=== PATIENT | female | born 1940 | race Caucasian/White ===

== ENCOUNTER 2016-05-17 10:20 | Emergency (ER) | payer MEDICARE, OTHER ==
[2015-06-04 11:54] VITALS: BMI 20.6
[~2016-05-17 10:20] MED LIST: ALBUTEROL2.5 MG/3 M INH; ASPIRIN325 MG PO; BACTRIM DS TABL1 TAB PO; BENICAR HCT 40-1 TA1 PO; BENICAR40 MG PO; BIAXIN 500 MG500 MG PO; COZAAR100 MG PO; DIOVAN HCT 80/11 TAB; FERROUS SULFAT325 MG PO; FLAGYL500 MG PO; HYDROCHLOROTHIA25 MG PO; IPRAT-ALBUT 0.5-3 ML UPD; K-DUR20 MEQ PO; KEFLEX500 MG PO; MACROBID100 MG PO; MICRO-K10 MEQ PO; NORCO 10/325 TA1 TA1 PO; ORAPRED ODT10 MG/TAB PO; PEPCID20 MG PO; PROAIR HFA8.5 GM INH; PROCTOFOAM15 GM RC; PROVENTIL/2.5 MG/3 M INH; PULMICORT0.5 MG/21 UPD; STERAPRED DS 1210 MG PO; SYNTHROID25 MCG PO; TYLENOL 8 HOUR650 MG PO; VENTOLIN HFA18 GM INH; XANAX0.5 MG PO; [UNRECOGNIZED DRUG - OTHER] PO
[2016-05-17 10:56] LABS: BASOPHILS 0.2 % (0.0-2.0); HEMATOCRIT 38.7 % (36.0-48.0); HEMOGLOBIN 12.3 g/dL (12-16); IMMATURE GRANULOCYTES 0.2 % (0-5); LYMPHOCYTES 27.9 % (15-50); MCH 28.3 pg (26.0-34.0); MCHC 31.8 g/dL (31.0-37.0); MCV 89.2 fL (80.0-100.0); MEAN PLATELET VOLUME 9.4 fL (7.4-10.4); NEUTROPHILS 63.7 % (40-80); PLATELET COUNT 162 10x3/uL (130-400); RBC 4.34 10x6/uL (4.00-5.40); RDW 13.1 % (11.5-14.5); WBC 5.6 10x3/uL (4.8-10.8)
[2016-05-17 11:13] LABS: ALBUMIN 3.9 g/dL (3.4-5.0); ANION GAP 12.7 mmol/L (8-16); BILIRUBIN - TOTAL 0.5 mg/dL (0.2-1.3); CALCIUM 10.2 mg/dL (8.5-10.1); CARBON DIOXIDE 27.1 mmol/L (21.0-32.0); POTASSIUM - SERUM 3.8 mmol/L (3.5-5.1); PROTEIN - SERUM 7.3 g/dL (6.4-8.2)
[2016-05-17 11:25] LABS: APPEARANCE CLEAR (CLEAR); BILIRUBIN NEGATIVE (NEGATIVE); COLOR STRAW (YELLOW); GLUCOSE NEGATIVE (NEGATIVE); KETONE NEGATIVE (NEGATIVE); LEUKOCYTE ESTERASE 1+ (NEGATIVE); NITRITE NEGATIVE (NEGATIVE); PROTEIN NEGATIVE (NEGATIVE); SPECIFIC GRAVITY 1.005 (1.005-1.020); UROBILINOGEN NORMAL (NORMAL)
[2016-05-17 11:26] LABS: BACTERIA FEW /hpf (NONE SEEN); EPITHELIAL CELLS 0-5 /hpf (0-5); RED CELLS - URINE RARE /hpf (0-5)
[2016-05-17 11:29] LABS: MAGNESIUM - SERUM 1.9 mg/dL (1.8-2.4)
== END 2016-05-17 14:38 | disposition home or self-care (01) ==
LOC: D.ER 10:20
PROVIDERS: Emergency Medicine
DX: R10.9 Unspecified abdominal pain (principal); R19.7 Diarrhea, unspecified; R06.00 Dyspnea, unspecified; I10 Essential (primary) hypertension; F41.9 Anxiety disorder, unspecified; J45.909 Unspecified asthma, uncomplicated; E03.9 Hypothyroidism, unspecified

== ENCOUNTER 2016-08-01 06:52 | Day surgery (SDC) | payer MEDICARE, OTHER ==
[~2016-08-01] VITALS: Ht 157.5 cm; Wt 54.5 kg
[2016-08-01] MEDS ORDERED: NORVASC5 MG PO (08:17)
[2016-08-01 08:23] VITALS: BP 139/85; Ht 157.5 cm; Wt 54.5 kg
[2016-08-01 08:45] LABS: BASOPHILS 0.2 % (0-2); EOSINOPHILS 1.6 % (0-7); HEMATOCRIT 39.7 % (36.0-48.0); HEMOGLOBIN 12.6 g/dL (12-16); IMMATURE GRANULOCYTES 0.4 % (0-5); LYMPHOCYTES 23.4 % (15-50); MCH 28.8 pg (26.0-34.0); MCHC 31.7 g/dL (31.0-37.0); MCV 90.8 fL (80.0-100.0); MEAN PLATELET VOLUME 9.2 fL (7.4-10.4); MONOCYTES 6.3 % (2-11); NEUTROPHILS 68.1 % (40-80); PLATELET COUNT 161 10x3/uL (130-400); RBC 4.37 10x6/uL (4.00-5.40); RDW 13.3 % (11.5-14.5); WBC 4.9 10x3/uL (4.8-10.8)
[2016-08-01 08:58] LABS: ANION GAP 11.9 mmol/L (8-16); CALCIUM 9.9 mg/dL (8.5-10.1); CARBON DIOXIDE 29.8 mmol/L (21.0-32.0); CREATININE - SERUM 0.8 mg/dL (0.6-1.3); POTASSIUM - SERUM 3.7 mmol/L (3.5-5.1)
[2016-08-01] MEDS ORDERED: PROTONIX40 MG PO (10:24)
--- NOTE | 2016-08-01 13:02 | OP ---
PATIENT NAME: MELISSA NAIDU MEDICAL RECORD: [id number] :38 LOCATION:TRACE ADMISSION DATE: SURGEON: MAUREEN ROBBINS DO DATE OF OPERATION: 08/01/2016 PROCEDURE: EGD with biopsies. INDICATIONS FOR PROCEDURE: Heartburn and generalized abdominal pain. SCOPE: Olympus video gastroscope. MEDICATIONS: Propofol 100 mg IV per anesthesia. ESTIMATED BLOOD LOSS: Less than 3 cc. FINDINGS: Informed consent was given. The patient was made comfortable with the above medication. After reaching an adequate level of sedation by slow IV push, the patient was placed on her left side. The endoscope was then advanced under direct visualization through the mouth to the second portion of the duodenum. 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 Multiple biopsies were taken of this site to confirm the diagnosis. Within the Knott's segment, at approximately 34 cm, there was a single nodule, which measured approximately 2-3 mm in diameter and stood out from the surrounding areas. This was biopsied separately and placed in its own container for pathology. The endoscope was advanced beyond the GE junction and retroflexed to view the cardia and fundus. There was a small sliding hiatal hernia present involving the cardia. The fundus appeared normal. There were multiple small, superficial, linear gastric ulcers present throughout the body of the stomach. There were no bleeding stigmata associated with these ulcers. In the antrum and prepyloric region, there was some nodularity, granularity and erythema consistent with gastritis. Multiple biopsies were taken from the antrum, incisura and body of the stomach to send for pathology and to rule out H. pylori. The endoscope was advanced through the pylorus into the duodenum where the bulb and second portion of the duodenum appeared normal. The endoscope was then withdrawn from the patient. The patient tolerated the procedure well and there were no complications. IMPRESSION: 1. 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 2. A single nodule within the Knott's mucosa, which was biopsied separately. This was located at 34 cm and measured approximately 2-3 mm in diameter. 3. Small sliding hiatal hernia. 4. Linear superficial gastric ulcers throughout the body of the stomach. 5. Gastritis of the antrum and prepyloric region. PLAN AND RECOMMENDATIONS: 1. Discharge home when recovery parameters are met. 2. Protonix 40 mg daily in the morning. 3. Consider adding Carafate suspension if the Protonix is not controlling symptoms. 4. Follow up biopsy specimen results. 5. We will refer for a modified barium swallow with speech pathology based on OPERATIVE REPORT [id number] EVANGELISTAMELISSA BILLY past findings of aspiration with thin liquids. The patient states that she has not received any speech therapy evaluation since that finding. 6. Consider lower endoscopy based on symptoms of abdominal pain. 7. Consider CT scan if all endoscopy is normal. TRANSINT:[id number] Voice Confirmation ID: [id number] DOCUMENT ID: [id number] MAUREEN ROBBINS DO at 1302 CC: [id number] DICTATION DATE: 08/01/16 0919 SUPERVISOR PRODUCTION: 08/01/16 1126 REG [facility] [address] [id number]
--- NOTE | 2016-08-01 15:25 | NUR ---
1005 SERVED FULL LIQUID DIET. Stephanie GAUTHIER R.N. 1040 UP TO BATHROOM WITH ASSISTANCE & USING WALKER. VOIDED URINE. BACK TO BED. IV DC'ED WITH CATH INTCT & 825ML LTC. PRESSURE TO SITE. NO BLEEDING NOTED. PT DRESSING WITH ASSISTANCE OF HER DAUGHTER, BENJAMÍN. Stephanie GAUTHIER R.N. 1100 DRESSED, AWAKE & ALERT. SITTING UP ON SIDE OF BED. GIVEN DISCHARGE INFORMATION INCLUDING: MED REC, SHEET LISTING NSAIDS TO AVOID FOR 2 WEEKS, REFLUX ESOPHAGITIS/HIATEL HERNIA DIET, & DISCHARE INSTRUCTIONS SHEET POST ENDOSCOPIC PROCEDURES. PT VOICED UNDERSTANDING. RX ALREADY GIVEN TO FAMILY MEMBER FOR PROTONIX. PT VOICED UNDERSTANDING. TO PRIVATE CAR PER WHEELCHAIR BY VOLUNTEER. HOME WITH DAUGHTER, BENJAMÍN. Stephanie GAUTHIER R.N.
== END 2016-08-01 11:00 | disposition home or self-care (01) ==
LOC: D.OPS 06:52
PROVIDERS: Anesthesiology
DX: K29.70 Gastritis, unspecified, without bleeding (principal); R12 Heartburn; R10.84 Generalized abdominal pain; J44.9 Chronic obstructive pulmonary disease, unspecified; E03.9 Hypothyroidism, unspecified; I11.0 Hypertensive heart disease with heart failure; I50.9 Heart failure, unspecified; K25.9 Gastric ulcer, unspecified as acute or chronic, without hemorrhage or perforation; K44.9 Diaphragmatic hernia without obstruction or gangrene; Z01.812 Encounter for preprocedural laboratory examination

== ENCOUNTER → 2016-08-23 12:58 | Outpatient (CLI) | payer MEDICARE, OTHER ==
[2016-08-01 08:23] VITALS: BMI 22.0
[~2016-08-23 12:58] MED LIST changes: +NORVASC5 MG PO; +PROTONIX40 MG PO
== END | disposition home or self-care (01) ==
LOC: D.RAD 08-10 13:00
DX: R10.9 Unspecified abdominal pain (principal); R12 Heartburn

== ENCOUNTER 2016-08-26 08:19 | Emergency (ER) | payer MEDICARE, OTHER ==
[2016-08-01 08:23] VITALS: BMI 22.0
[2016-08-26 08:49] LABS: BASOPHILS 0.2 % (0-2); EOSINOPHILS 1.7 % (0-7); HEMATOCRIT 40.8 % (36.0-48.0); HEMOGLOBIN 13.1 g/dL (12-16); IMMATURE GRANULOCYTES 0.3 % (0-5); LYMPHOCYTES 19.6 % (15-50); MCH 29.2 pg (26.0-34.0); MCHC 32.1 g/dL (31.0-37.0); MCV 90.9 fL (80.0-100.0); MEAN PLATELET VOLUME 9.3 fL (7.4-10.4); MONOCYTES 5.9 % (2-11); NEUTROPHILS 72.3 % (40-80); PLATELET COUNT 165 10x3/uL (130-400); RBC 4.49 10x6/uL (4.00-5.40); RDW 13.2 % (11.5-14.5); WBC 5.8 10x3/uL (4.8-10.8)
[2016-08-26 08:51] LABS: APPEARANCE HAZY (CLEAR); BILIRUBIN NEGATIVE (NEGATIVE); COLOR YELLOW (YELLOW); GLUCOSE NEGATIVE (NEGATIVE); KETONE NEGATIVE (NEGATIVE); NITRITE NEGATIVE (NEGATIVE); PROTEIN NEGATIVE (NEGATIVE); UROBILINOGEN NORMAL (NORMAL)
[2016-08-26 08:52] LABS: LEUKOCYTE ESTERASE TRACE (NEGATIVE); WHITE CELLS - URINE 0-5 /hpf (0-5)
[2016-08-26 08:54] LABS: BACTERIA MODERATE /hpf (NONE SEEN); EPITHELIAL CELLS 0-5 /hpf (0-5); RED CELLS - URINE 0-5 /hpf (0-5)
[2016-08-26 09:03] LABS: ALBUMIN 3.9 g/dL (3.4-5.0); BILIRUBIN - TOTAL 0.51 mg/dL (0.2-1.3); CALCIUM 10.2 mg/dL (8.5-10.1); CARBON DIOXIDE 28.7 mmol/L (21.0-32.0); CREATININE - SERUM 1.1 mg/dL (0.6-1.3); POTASSIUM - SERUM 3.7 mmol/L (3.5-5.1); PROTEIN - SERUM 7.3 g/dL (6.4-8.2)
[2016-08-26 11:57] LABS: THYROID STIMULATING HORMONE 1.36 uIU/mL (0.36-3.74)
== END 2016-08-26 13:00 | disposition home or self-care (01) ==
LOC: D.ER 08:19
PROVIDERS: Emergency Medicine
DX: R53.1 Weakness (principal); J45.909 Unspecified asthma, uncomplicated; F41.9 Anxiety disorder, unspecified; I10 Essential (primary) hypertension; E03.9 Hypothyroidism, unspecified

== ENCOUNTER → 2017-01-04 12:29 | Outpatient (CLI) | payer MEDICARE, OTHER ==
[2016-08-01 08:23] VITALS: BMI 22.0
== END | disposition home or self-care (01) ==
LOC: D.RAD 12-30 13:00
DX: R13.10 Dysphagia, unspecified (principal)

== ENCOUNTER 2017-01-04 13:12 | Emergency (ER) | payer MEDICARE, OTHER ==
[2016-08-01 08:23] VITALS: BMI 22.0
[2017-01-04 15:12] LABS: BASOPHILS 0.3 % (0-2); EOSINOPHILS 2.8 % (0-7); HEMATOCRIT 39.7 % (36.0-48.0); HEMOGLOBIN 12.9 g/dL (12-16); IMMATURE GRANULOCYTES 0.5 % (0-5); LYMPHOCYTES 21.5 % (15-50); MCH 29.1 pg (26.0-34.0); MCHC 32.5 g/dL (31.0-37.0); MCV 89.4 fL (80.0-100.0); MONOCYTES 4.5 % (2-11); NEUTROPHILS 70.4 % (40-80); RBC 4.44 10x6/uL (4.00-5.40); RDW 13.4 % (11.5-14.5)
[2017-01-04 15:15] LABS: PLATELET COUNT 205 10x3/uL (130-400)
[2017-01-04 15:38] LABS: ALBUMIN 3.8 g/dL (3.4-5.0); ANION GAP 9.8 mmol/L (8-16); BILIRUBIN - TOTAL 0.4 mg/dL (0.2-1.3); CALCIUM 10.2 mg/dL (8.5-10.1); CARBON DIOXIDE 29.1 mmol/L (21.0-32.0); POTASSIUM - SERUM 3.9 mmol/L (3.5-5.1); PROTEIN - SERUM 6.8 g/dL (6.4-8.2)
[2017-01-04 16:28] LABS: APPEARANCE CLEAR (CLEAR); BILIRUBIN NEGATIVE (NEGATIVE); COLOR YELLOW (YELLOW); GLUCOSE NEGATIVE (NEGATIVE); KETONE NEGATIVE (NEGATIVE); NITRITE NEGATIVE (NEGATIVE); PROTEIN NEGATIVE (NEGATIVE); UROBILINOGEN NORMAL (NORMAL)
[2017-01-04 16:30] LABS: BACTERIA FEW /hpf (NONE SEEN); LEUKOCYTE ESTERASE TRACE (NEGATIVE); RED CELLS - URINE OCC /hpf (0-5); WHITE CELLS - URINE OCC /hpf (0-5)
== END 2017-01-04 18:13 | disposition home or self-care (01) ==
LOC: D.ER 13:12
PROVIDERS: Emergency Medicine
DX: R10.32 Left lower quadrant pain (principal); K59.00 Constipation, unspecified; Z87.09 Personal history of other diseases of the respiratory system; Z86.79 Personal history of other diseases of the circulatory system; I10 Essential (primary) hypertension

== ENCOUNTER 2017-05-14 12:17 | Emergency (ER) | payer MEDICARE, OTHER ==
[2016-08-01 08:23] VITALS: BMI 22.0
[2017-05-14 13:06] LABS: BASOPHILS 0.3 % (0-2); EOSINOPHILS 4.1 % (0-7); HEMATOCRIT 37.5 % (36.0-48.0); IMMATURE GRANULOCYTES 0.3 % (0-5); LYMPHOCYTES 25.5 % (15-50); MCH 28.4 pg (26.0-34.0); MCV 88.7 fL (80.0-100.0); MEAN PLATELET VOLUME 8.7 fL (7.4-10.4); MONOCYTES 9.8 % (2-11); PLATELET COUNT 184 10x3/uL (130-400); RBC 4.23 10x6/uL (4.00-5.40); RDW 14.3 % (11.5-14.5); WBC 6.7 10x3/uL (4.8-10.8)
[2017-05-14 13:21] LABS: ALBUMIN 3.5 g/dL (3.4-5.0); ANION GAP 10.4 mmol/L (8-16); BILIRUBIN - TOTAL 0.3 mg/dL (0.2-1.3); CARBON DIOXIDE 28.8 mmol/L (21.0-32.0); POTASSIUM - SERUM 4.2 mmol/L (3.5-5.1); PROTEIN - SERUM 7.1 g/dL (6.4-8.2)
== END 2017-05-14 14:32 | disposition home or self-care (01) ==
LOC: D.ER 12:17
PROVIDERS: Emergency Medicine
DX: J20.9 Acute bronchitis, unspecified (principal); J44.9 Chronic obstructive pulmonary disease, unspecified

== ENCOUNTER → 2017-05-31 09:31 | Outpatient (CLI) | payer MEDICARE, OTHER ==
[2016-08-01 08:23] VITALS: BMI 22.0
== END | disposition home or self-care (01) ==
LOC: D.ECHO 09:31
DX: I71.2 Thoracic aortic aneurysm, without rupture (principal)

== ENCOUNTER → 2017-07-03 07:27 | Outpatient (CLI) | payer MEDICARE, OTHER ==
[2016-08-01 08:23] VITALS: BMI 22.0
[~2017-07-03 07:27] MED LIST changes: +ASPIRIN81 MG PO; +BYSTOLIC10 MG PO; +PLAVIX75 MG PO; +PRAVACHOL20 MG PO
== END | disposition home or self-care (01) ==
LOC: D.NM 07:27
DX: E04.9 Nontoxic goiter, unspecified (principal)

== ENCOUNTER 2017-09-06 23:27 | Inpatient (IN) | payer MEDICARE, OTHER ==
[~2017-09-06] VITALS: Ht 157.5 cm; Wt 48.4 kg
--- NOTE | ~2017-09-06 | DS ---
PATIENT:MELISSA NAIDU :36 MEDICAL RECORD: [id number] DISCHARGE SUMMARY ADMISSION DATE: 09/07/17 DISCHARGE DATE: 09/08/17 DATE OF DISCHARGE: 09/08/2017 DIAGNOSES: 1. Non-Q-wave myocardial infarction. 2. Coronary artery disease. 3. Percutaneous transluminal coronary angioplasty stent left anterior descending this admission. 4. Chronic obstructive pulmonary disease. 5. Hypertension. 6. Hyperlipidemia. HOSPITAL COURSE: Ms. Naidu presents with chest pain and a non-Q-wave myocardial infarction, found to have single vessel disease of the LAD, underwent successful PTCA stent of the LAD. Discharged home, discontinuing her losartan and amlodipine. She has better heart rate and blood pressure control with Bystolic 10 mg alone, addition of Pravachol 20 mg to her medical regimen as well as aspirin and Plavix. Will follow up with [facility] in 1 month. TRANSINT:[id number] Voice Confirmation ID: [id number] DOCUMENT ID: [id number] YAQUELIN BRISENO MD at 1403 CC: [id number] DICTATION DATE: 09/08/17 1003 INTERNATIONAL GUEST COORDINATOR: 09/08/17 1349 DIS IN 09/08/17 [facility] [address] [place] [address]
--- NOTE | ~2017-09-06 | HEMODYNAMI ---
PATIENT:MELISSA NAIDU MEDICAL RECORD: [id number] : 36 [facility] [id number] ADMISSION DATE: 09/07/17 Generatedon:09/07/201713:14 Patient name: MELISSA NAIDU Patient #: [id number] SSN: D OB: 1940 Date of study: 09/07/2017 Page: Of Hemodynamic Procedure Report Patient Data Patient Demographics Procedure consent was obtained First Name: MELISSA Gender: Female Last Name: EVANGELISTA : 1940 [facility] Initial: BILLY Age: 77 year(s) Patient #: [id number] Race: Unknown Additional ID: [id number] Contact details Address: [address] [address] State: [place] City: [place] Zip code: [address] Admission Admission Data Admission Date: 09/07/2017 Admission Time: 0:58 Room #: D2117 Height (in.): 61.81 BSA: 1.44 (m2) Height (cm.): 157 BMI: 19.07 (kg/m2) Weight (lbs.): 103.62 Weight (kg.): 47 Lab Results Lab Result Date: 09/07/2017 Lab Result Time: 0:00 Biochemistry Name Units Result Min Max BUN mg/dl 13 --(--*-)-- 7 18 Creatinine mg/dl 0.8 --(-*--)-- 0.6 1.3 CBC Name Units Result Min Max Hemoglobin g/dl 11.8 *-(----)-- 13.5 17.5 Procedure Procedure Types Cath Procedure Diagnostic Procedure C [facility] w/Coronaries Sedation Charges Moderate Sedation up to 15 minutes PCI Procedure Coronary Stent Coronary Stent Initial Procedure Description Procedure Date Procedure Date: 09/07/2017 Procedure Start Time: 12:58 Procedure End Time: 13:11 Procedure Staff Name Function Ovi Colon MD Performing Physician Vicky Hernandez RT Monitor Nettie Aguilar RN Nurse Gilda Coleman RT Scrub Anthony Gannon RN Nurse Procedure Data Cath Procedure Fluoroscopy Diagnostic fluoroscopy Total fluoroscopy Time: 3.4 time: 3.4 min min Diagnostic fluoroscopy Total fluoroscopy dose: 596 dose: 596 mGy mGy Contrast Material Contrast Material Type Amount (ml) Isovue 300 86 Entry Location Entry Primary Successful Side Size Upsize Upsize Entry Closure Succes sful Closure Location (Fr) 1 (Fr) 2 (Fr) Remarks Device Remarks Femoral Right 5 Fr 6 Fr Exoseal artery Short Estimated blood loss: 5 ml Diagnostic catheters Device Type Used For End Catheter Placement MULTIPACK Pigtail 5 Fr LV Angiography catheter MULTIPACK JL 4.0 5Fr Left Coronary catheter Angiography MULTIPACK 3DRC 5Fr Right Coronary catheter Angiography Procedure Complications No complications Procedure Medications Medication Administration Route Dosage Oxygen NC 2 l/min Lidocaine 2% added to field 20 Heparin Flush Bag added to field 2 bags (1000units/500ml NS) 0.9% NaCl I.V. 100 ml/hr Fentanyl I.V. 50 mcg Versed I.V. 1 mg Fentanyl I.V. 50 mcg Versed I.V. 1 mg Heparin Bolus I.V. 4000 units Hemodynamics Rest BSA: 1.44 (m2) HGB: 11.8 (g/dl) O2 Consumption: Estimated: 148.31 (ml/min) O2 Co nsumption indexed: Estimated:102.99 (ml/min/m) Heart Rate: 104 (bpm) Pressure Samples Time Site Value (mmHg) Purpose Heart Use Rate(bpm) 12:59 LV 73/10,12 Snapshot 102 Snapshots Pre Cath Intra NCS Post Cath Vital Signs Time Heart Resp SPO2 etCO2 NIBP (mmHg) Rhythm Pain Sedation Rate (ipm) (%) (mmHg) Status Level (bpm) 12:38:25 102 19 99 26.1 130/85(101) NSR 0 (11) 10(A) , No pain 12:42:32 107 19 99 16.4 128/86(102) NSR 0 (11) 10(A) , No pain 12:46:42 99 17 98 30.5 122/74(93) NSR 0 (11) 9(A) , No pain 12:50:50 99 16 98 35 105/71(84) NSR 0 (11) 9(A) , No pain 12:54:52 97 17 97 32.7 114/71(87) NSR 0 (11) 9(A) , No pain 12:58:53 103 16 97 35 126/79(99) NSR 0 (11) 9(A) , No pain 13:03:01 100 17 96 33.5 108/72(88) NSR 0 (11) 9(A) , No pain 13:07:03 94 17 97 35.7 107/68(87) NSR 0 (11) 9(A) , No pain 13:11:03 96 18 97 32.7 107/72(86) NSR 0 (11) 10(A) , No pain Medications Time Medication Route Dose Verified Delivered Reason Notes Effectiveness by by 12:14:42 Oxygen NC 2 Voi Buffie used for l/min Isaiah Aguilar supply aide 12:14:49 Lidocaine 2% added 20ml Ovi Buffie used for to vial Isaiah Aguilar supply aide field 12:14:55 Heparin Flush added 2 Ovi Buffie used for Bag to bags Isaiah Aguilar RN procedure (1000units/500ml field NS) 12:15:02 0.9% NaCl I.V. 100 Ovi Buffie Per physician ml/hr Isaiah Aguilar RN 12:43:43 Fentanyl I.V. 50 Ovi Cruz for sedation mcg Isaiah Gannon RN 12:43:53 Versed I.V. 1 mg Ovi Cruz for sedation Isaiah Gannon RN 12:58:44 Fentanyl I.V. 50 Ovi Sawyery for sedation mcg Isaiah Gannon RN 12:58:46 Versed I.V. 1 mg Ovi Cruz for sedation Isaiah Gannon RN 13:04:26 Heparin Bolus I.V. 4000 Oviveto Sawyery for units Isaiah Gannon RN anticoagulation Procedure Log Time Note 11:39:11 Patient Height : 61.81 inches 11:39:15 Patient Weight : 103.62 lbs 11:39:42 Lab Result : Hemoglobin 11.8 g/dl 11:39:42 Lab Result : Creatinine 0.8 mg/dl 11:39:42 Lab Result : BUN 13 mg/dl 11:40:10 Diagnostic Cath status Elective 11:40:12 Vicky Hernandez RT(R) sent for patient. Start room use. 11:53:28 Time tracking: Regular hours (M-F 7:00 - 5:00) 11:53:32 Plan of Care:Hemodynamics will remain stable., Cardiac rhythm will remain stable., Comfort level will be maintained., Respiratory function will remain adequate., Patient/ family verbilizes understanding of procedure., Procedure tolerated without complication., Recovers from procedure without complications.. 11:53:37 Patient received from Med II to CCL 2 Alert and oriented. Tansferred to table in Supine position. 11:53:37 Warm blankets applied, and jamie hugger turned on for patient comfort. 11:53:38 Correct patient and procedure confirmed by team. 11:53:39 Signed procedure consent form obtained from patient. 11:53:41 ECG and BP/O2 sat monitors applied to patient. 11:57:49 Full Disclosure recording started 11:57:58 H&P Date Dictated: 09/07/2017 New H&P dictated by physician.. 11:58:00 Pre-procedure instructions explained to patient. 11:58:00 Pre-op teaching completed and patient verbalized understanding. 11:58:03 Family unavailable. 11:58:04 Patient NPO since Midnight. 11:58:06 Is the patient allergic to Iodine/contrast media? No. 11:58:07 Was the patient premedicated? No 11:58:08 Is patient on blood thinner?Yes 11:58:09 ACC The patient was administered the following blood thiners within the last 24 hours: ACCPlavix 11:58:09 Patient diabetic? No. 11:58:12 Previous problem with sedation/anesthesia? No ? 11:58:14 Snore? Yes 11:58:15 Sleep apnea? No 11:58:16 Deviated septum? No 11:58:16 Opens mouth fully? Yes 11:58:17 Sticks out tongue? Yes 11:58:23 Airway obstruction? Yes copd asthma 11:58:25 Dentures? No ? 11:58:29 Pre procedure: right dorsailis pedis pulse 2+ Normal; easily identifiable; not easily obliterated 11:58:31 Pre procedure: left dorsailis pedis pulse 2+ Normal; easily identifiable; not easily obliterated 11:58:32 Patient pain scale 0/10 ?. 11:59:40 IV started by Nettie Aguilar RN inleft forearm with a 20 gauge IV catheter with 0.9% NaCl at KVO. 11:59:43 Lab results completed and on chart. 11:59:49 Right groin area was prepped with chlora-prep and draped in sterile fashion 11:59:49 Alarms reviewed by R. N. 11:59:50 Sharps counted by scrub and verified by R.N. 12:14:42 Oxygen 2 l/min NC was administered by Nettie Aguilar RN; used for procedure; 12:14:49 Lidocaine 2% 20ml vial added to field was administered by Nettie Aguilar RN; used for procedure; 12:14:55 Heparin Flush Bag (1000units/500ml NS) 2 bags added to field was administered by Nettie Aguilar RN; used for procedure; 12:15:02 0.9% NaCl 100 ml/hr I.V. was administered by Nettie Aguilar RN; Per physician; 12:34:04 Physician arrived 12:34:05 --------ALL STOP TIME OUT------ 12:34:05 Final Timeout: patient, procedure, and site verified with staff and physician. All members of the team are in agreement. 12:34:15 Right groin site verified by team. 12:34:18 Physical assessment completed. ASA score P 2 - A patient with mild systemic disease as per Ovi Colon MD. 12:34:22 Sedation plan: IV Moderate Sedation Medication:Versed, Fentanyl 12:34:27 Use device set Femoral Dx 12:34:28 ACIST Syringe (33496) opened to sterile field. 12:34:29 Bag Decanter () opened to sterile field. 12:34:29 Medline Cath Pack ([id number]) opened to sterile field. 12:34:30 DIAGNOSTIC WIRE .035 260cm J wire (336181) opened to sterile field. 12:34:31 ACIST Hand Control (08090) opened to sterile field. 12:34:31 ACIST Manifold (75072) opened to sterile field. 12:34:32 DIAGNOSTIC Multipack 5Fr catheter set (MP8926) opened to sterile field. 12:34:33 Tegaderm 4 x 4 (1626W) opened to sterile field. 12:34:34 SHEATH Prelude 5Fr 0.035 ([id number]-5D-49-035) opened to sterile field. 12:37:34 Zero performed for pressure channel P1 12:38:12 Vital chart was started 12:38:13 Baseline sample Acquired. 12:38:35 Rhythm: sinus tachycardia 12:43:43 Fentanyl 50 mcg I.V. was administered by Anthony Gannon RN; for sedation; 12:43:53 Versed 1 mg I.V. was administered by Anthony Gannon RN; for sedation; 12:57:52 Procedure started. 12:58:44 Fentanyl 50 mcg I.V. was administered by Anthony Gannon RN; for sedation; 12:58:46 Versed 1 mg I.V. was administered by Anthony Gannon RN; for sedation; 12:58:51 Local anesthetic to right femoral artery with Lidocaine 2% by Ovi Colon MD.INITIAL ACCESS ONLY 12:59:00 A 5 Fr sheath was inserted into the Right Femoral artery 12:59:14 A MULTIPACK Pigtail 5 Fr catheter was advanced over the wire and used for LV Angiography. 12:59:47 LV hemodynamics recorded. 12:59:49 LV gram done using ESPINO 12:59:54 Injector settings: Ml/sec: 5, Volume: 15, 12:59:59 EF : 50 % 13:00:07 Catheter removed. 13:00:11 A MULTIPACK JL 4.0 5Fr catheter was advanced over the wire and used for Left Coronary Angiography. 13:00:53 LCA angiography performed. 13:00:56 Injector settings: Ml/sec: 3, Volume: 6, 13:02:08 Catheter removed. 13:02:14 A MULTIPACK 3DRC 5Fr catheter was advanced over the wire and used for Right Coronary Angiography. 13:02:44 CHOICE PT Extra Support 182cm wire ([id number]) opened to sterile field. 13:02:45 INFLATOR Merit BasixCompak (LM5608) opened to sterile field. 13:02:46 SHEATH 6Fr Prelude ([id number]) opened to sterile field. 13:02:52 RCA angiography performed. 13:02:54 Injector settings: Ml/sec: 3, Volume: 6, 13:03:01 GUIDE 6FR XBLAD 4.0 catheter ([id number]) opened to sterile field. 13:03:07 Catheter removed. 13:03:08 Proceeding to intervention. 13:03:15 Sheath upsized to a 6 Fr Short. 13:03:22 6 Fr xblad 4 guide catheter was inserted over the wire 13:03:32 choice pt wire advanced. 13:04:26 Heparin Bolus 4000 units I.V. was administered by Anthony Gannon RN; for anticoagulation; 13:04:37 Wire advanced across lesion. 13:08:07 Place stent Inflation Number: 1 A BEN RX 3.0 x 18 stent ([id number]) was prepped and advanced across the Prox LAD. The stent was deployed at 13 DAVID for 0:10 (min:sec). 13:08:33 Stent catheter was removed intact over wire. 13:08:34 Wire removed. 13:08:35 Guide catheter removed. 13:08:46 Sheath removed intact; hemostasis achieved with Exoseal to the Right Femoral artery. 13:08:48 Procedure ended.(Physican Out) 13:08:57 Fluoroscopy time 03.40 minutes. 13:09:01 Flurop Dose total: 596 13:09:01 Fluoroscopy dose: 596 mGy 13:09:05 Contrast amount:Isovue 300 86ml. 13:09:34 Sharps counted by scrub and verified by R.N. 13:09:36 Insertion/operative site no bleeding no hematoma. 13:09:38 Post-op/insertion site Right Femoral artery dressed using a 4 x 4 and Tegaderm. 13:09:41 Post right femoral artery:stable 13:09:42 Post Procedure Pulses reassessed and unchanged 13:09:54 Post procedure rhythm: unchanged. 13:09:57 Estimated blood loss: 5 ml 13:09:58 Post procedure instruction explained to patient.Patient verbalizes understanding. 13:09:59 Patient needs reinforcement of post procedure teaching. 13:10:36 Procedure type changed to Cath procedure, Diagnostic procedure, LHC, LHC w/Coronaries, Sedation Charges, Moderate Sedation up to 15 minutes, PCI procedure, Coronary Stent, Coronary Stent Initial 13:10:37 Procedure and supply charges have been captured, reviewed, submitted and are correct. 13:10:42 Procedure Complication : No complications 13:10:44 Vital chart was stopped 13:10:45 See physician's report for complete and final results. 13:11:03 Report given to [facility]. 13:11:06 Patient transfered to [facility] with Stretcher. 13:11:08 Procedure ended. 13:11:08 Full Disclosure recording stopped 13:11:16 ACC-PCI Only Patient was given prescriptions, or instructed by Ovi Colon MD to start/continue the following medications upon discharge: Plavix 13:11:18 End room use (Document Last) 13:12:41 EXOSEAL 6Fr (EX600) opened to sterile field. Intervention Summary Intervention Notes Time ActionType Lesion and Equipment Used Action# Pressure Duration Attributes 13:08:[address] stent Prox LAD BEN RX 3.0 x 1 13 00:10 18 stent ([id number]) Device Usage Item Name Manufacture Quantity Catalog Number Hospital Part Current Minimal Lot# / Charge Number Stock Stock Serial# Code ACIST Syringe Acist 1 18848 486141 100200 347182 20 (63829) [employer] Bag Decanter Microtek 1 2001S 582245 24054 482843 5 (2001S) Medical Inc. Medline Cath Cardinal 1 [id number] 616091 49432 470978 5 Pack Health ([id number]) DIAGNOSTIC WIRE St Silverio 1 796877 387224 884813 338681 30 .035 260cm J wire (839977) ACIST Hand Acist 1 37214 918436 742160 356901 5 Control (79212) Medical [employer] Inc ACIST Manifold Acist 1 44453 713630 812042 334885 5 (09079) [employer] Systems Inc DIAGNOSTIC Cardinal 1 [id number] 530418 36280 237902 30 Multipack 5Fr Health catheter set (AR0013) Tegaderm 4 x 4 3M 1 1626W 799179 744364 382333 5 (1626W) SHEATH Prelude Merit 1 QAO-1M-86-035 783006 171456 036591 5 5Fr 0.035 Medical (FSV-1H-17-035) MULTIPACK Cardinal 1 432686 5 Pigtail 5 Fr Health catheter MULTIPACK JL Cardinal 1 149475 5 4.0 5Fr Health catheter MULTIPACK 3DRC Cardinal 1 093853 5 5Fr catheter Health CHOICE PT Extra [place] 1 [id number] 078871 477634 790289 5 Support 182cm Scientific wire ([id number]) INFLATOR Merit Merit 1 [id number] 890260 480378 772589 15 [employer]ix[employer] Medical (OW9569) SHEATH 6Fr Merit 1 [id number] 952419 703071 046095 5 Prelude Medical ([id number]) GUIDE 6FR XBLAD Cardinal 1 [id number] 047016 614610 598857 3 4.0 catheter Health ([id number]) BEN RX 3.0 x Medtronic 1 [id number] 149290 3803324 457541 5 [id number] 18 stent ([id number]) EXOSEAL 6Fr Cardinal 1 EX600 558097 449260 116043 10 (EX600) Health Signature Audit [place] Stage Time Signature Unsigned Intra-Procedure 09/07/2017 Vicky Hernandez 1:14:39 PM RT(R) Signatures Monitor : Vicky Hernandez RT Signature : Date : Time : [id number] [place] [address]
--- NOTE | ~2017-09-06 | OP ---
PATIENT NAME: MELISSA NAIDU MEDICAL RECORD: [id number] :38 LOCATION:D.M2 D.2117 ADMISSION DATE:09/07/17 SURGEON: YAQUELIN BRISENO MD DATE OF OPERATION: 09/07/2017 PROCEDURES: 1. PTCA stent LAD. 2. Left heart catheterization. 3. Selective coronary angiography. 4. Left ventriculogram. INDICATION: Non-Q-wave myocardial infarction. PROCEDURE IN DETAIL: After informed consent was obtained and after a detailed description of risks, benefits as well as alternative therapies, the patient elected to proceed with angiogram and angioplasty. The right femoral area was prepped and draped in normal sterile fashion. Right femoral artery was cannulated via modified Seldinger technique with placement of 6-Greenlandic sheath. All catheters exchanged through this sheath. FINDINGS: The left ventriculogram was performed in standard 30-degree ESPINO view, reveals anteroapical hypokinesis. Overall ejection fraction estimated at 50%. SELECTIVE CORONARY ANGIOGRAPHY: 1. Left main has no significant angiographic disease. 2. Left anterior descending has previously placed stent proximally. There is 80% in-stent restenosis, otherwise moderate irregularities throughout the remainder of the LAD. 3. The left circumflex has moderate irregularities, but no flow-limiting stenosis. 4. Right coronary is small, nondominant with an 80% and 90% stenosis. PTCA STENT OF THE LAD: The stent used was a 3.0 x 18 mm Nabeel. Result was 0% residual stenosis. OVERALL IMPRESSION: Successful percutaneous transluminal angioplasty stent of the left anterior descending going from 80% initial stenosis to 0% residual. TRANSINT:[id number] Voice Confirmation ID: [id number] DOCUMENT ID: [id number] YAQUELIN BRISENO MD at 0847 CC: [id number] DICTATION DATE: 09/07/17 1316 SUPERVISOR CD AREA: 09/07/17 1327 [place] [address]
[~2017-09-06 23:27] MED LIST changes: -ASPIRIN81 MG PO; -BYSTOLIC10 MG PO; -PLAVIX75 MG PO; -PRAVACHOL20 MG PO
[2017-09-07 00:12] LABS: HEMATOCRIT 36.6 % (36.0-48.0); HEMOGLOBIN 11.8 g/dL (12-16); MCH 27.9 pg (26.0-34.0); MCHC 32.2 g/dL (31.0-37.0); MCV 86.5 fL (80.0-100.0); MEAN PLATELET VOLUME 8.3 fL (7.4-10.4); NEUTROPHILS 91.2 % (40-80); RBC 4.23 10x6/uL (4.00-5.40); RDW 13.3 % (11.5-14.5); WBC 17.7 10x3/uL (4.8-10.8)
[2017-09-07 00:18] LABS: APPEARANCE CLEAR (CLEAR); BILIRUBIN NEGATIVE (NEGATIVE); COLOR STRAW (YELLOW); GLUCOSE NEGATIVE (NEGATIVE); KETONE NEGATIVE (NEGATIVE); NITRITE NEGATIVE (NEGATIVE); PROTEIN NEGATIVE (NEGATIVE); SPECIFIC GRAVITY 1.015 (1.005-1.020); UROBILINOGEN NORMAL (NORMAL)
[2017-09-07 00:20] LABS: BACTERIA FEW /hpf (NONE SEEN); EPITHELIAL CELLS 0-5 /hpf (0-5); RED CELLS - URINE 0-5 /hpf (0-5)
[2017-09-07 00:21] LABS: PLATELET COUNT 254 10x3/uL (130-400)
[2017-09-07 00:33] LABS: ALBUMIN 3.5 g/dL (3.4-5.0); ANION GAP 10.3 mmol/L (8-16); BILIRUBIN - TOTAL 0.22 mg/dL (0.2-1.3); CALCIUM 9.5 mg/dL (8.5-10.1); CARBON DIOXIDE 30.7 mmol/L (21.0-32.0); CREATININE - SERUM 0.8 mg/dL (0.6-1.3); PROTEIN - SERUM 7.2 g/dL (6.4-8.2)
[2017-09-07 00:44] LABS: TROPONIN-I 0.329 ng/mL (0.000-0.060)
[2017-09-07 02:53] VITALS: BP 138/72; BMI 19.4
[2017-09-07 04:53] VITALS: BP 160/81
[2017-09-07 08:50] VITALS: BP 134/77
[2017-09-07 09:56] LABS: BASOPHILS 0.1 % (0-2); EOSINOPHILS 0 % (0-7); HEMATOCRIT 39.6 % (36.0-48.0); HEMOGLOBIN 12.8 g/dL (12-16); IMMATURE GRANULOCYTES 0.3 % (0-5); LYMPHOCYTES 1.8 % (15-50); MCH 28.6 pg (26.0-34.0); MCHC 32.3 g/dL (31.0-37.0); MCV 88.4 fL (80.0-100.0); MEAN PLATELET VOLUME 9.2 fL (7.4-10.4); MONOCYTES 0.1 % (2-11); NEUTROPHILS 97.7 % (40-80); PLATELET COUNT 248 10x3/uL (130-400); RBC 4.48 10x6/uL (4.00-5.40); RDW 13.5 % (11.5-14.5); WBC 17.3 10x3/uL (4.8-10.8)
[2017-09-07 09:58] LABS: CALCIUM 9.7 mg/dL (8.5-10.1); CARBON DIOXIDE 26.3 mmol/L (21.0-32.0); CREATININE - SERUM 0.8 mg/dL (0.6-1.3); POTASSIUM - SERUM 4.3 mmol/L (3.5-5.1)
[2017-09-07] MEDS ORDERED: COZAAR100 MG PO (10:04)
[2017-09-07 12:03] VITALS: BP 138/79
[2017-09-07 12:34] VITALS: Ht 157.5 cm; Wt 48.4 kg
[2017-09-07 20:17] VITALS: BP 89/57
[2017-09-08 00:57] VITALS: BP 86/38
[2017-09-08 04:28] VITALS: BP 123/68
[2017-09-08 09:01] VITALS: BP 106/55
[2017-09-08] MEDS ORDERED: PLAVIX75 MG PO (11:09)
[2017-09-08] MEDS ORDERED: PRAVACHOL20 MG PO (11:10)
[2017-09-08] MEDS ORDERED: BYSTOLIC10 MG PO (11:11)
[2017-09-08] MEDS ORDERED: ASPIRIN81 MG PO (11:12)
== END 2017-09-08 12:04 | disposition home or self-care (01) | DRG 246 ==
LOC: OBSVTIME → D.ER 23:27 → D.OPS 23:27 → D.ER 09-07 00:58 → D.EDHOLD 09-07 00:58 → OBSVTIME 09-07 00:58 → D.M2 09-07 00:58 → D.EDHOLD 09-07 01:43 → EDSTATUS 09-07 10:45 → D.M2 09-07 15:12
PROVIDERS: Family Medicine; Internal Medicine Interventional Cardiology
PROC: B2111ZZ Fluoroscopy of Multiple Coronary Arteries using Low Osmolar Contrast (ICD-10-PCS; 2017-09-07)
PROC: B2151ZZ Fluoroscopy of Left Heart using Low Osmolar Contrast (ICD-10-PCS; 2017-09-07)
PROC: 027034Z Dilation of Coronary Artery, One Artery with Drug-eluting Intraluminal Device, Percutaneous Approach (ICD-10-PCS; principal; 2017-09-07 10:45)
PROC: 4A023N7 Measurement of Cardiac Sampling and Pressure, Left Heart, Percutaneous Approach (ICD-10-PCS; 2017-09-07 10:45)
DX: I97.190 Other postprocedural cardiac functional disturbances following cardiac surgery (principal); I21.A9 Other myocardial infarction type; T82.855A Stenosis of coronary artery stent, initial encounter; I25.10 Atherosclerotic heart disease of native coronary artery without angina pectoris; I50.9 Heart failure, unspecified; I11.0 Hypertensive heart disease with heart failure; Y83.8 Other surgical procedures as the cause of abnormal reaction of the patient, or of later complication, without mention of misadventure at the time of the procedure; J44.9 Chronic obstructive pulmonary disease, unspecified; F41.8 Other specified anxiety disorders; G62.9 Polyneuropathy, unspecified; Z87.891 Personal history of nicotine dependence

== ENCOUNTER 2017-09-19 07:58 | Emergency (ER) | payer MEDICARE, OTHER ==
[~2017-09-19] VITALS: Ht 157.5 cm; Wt 47.7 kg
[~2017-09-19 07:58] MED LIST changes: +ASPIRIN81 MG PO; +BYSTOLIC10 MG PO; +PLAVIX75 MG PO; +PRAVACHOL20 MG PO
[2017-09-19 08:00] VITALS: Ht 157.5 cm; Wt 47.7 kg
[2017-09-19 08:27] LABS: BASOPHILS 0.2 % (0-2); EOSINOPHILS 1.5 % (0-7); HEMATOCRIT 35.1 % (36.0-48.0); HEMOGLOBIN 11.2 g/dL (12-16); IMMATURE GRANULOCYTES 0.2 % (0-5); LYMPHOCYTES 14.7 % (15-50); MCHC 31.9 g/dL (31.0-37.0); MCV 87.8 fL (80.0-100.0); MEAN PLATELET VOLUME 9.1 fL (7.4-10.4); MONOCYTES 5.7 % (2-11); NEUTROPHILS 77.7 % (40-80); RDW 14.2 % (11.5-14.5)
[2017-09-19 08:30] LABS: PLATELET COUNT 174 10x3/uL (130-400)
[2017-09-19 08:44] LABS: ALBUMIN 3.5 g/dL (3.4-5.0); ANION GAP 13.7 mmol/L (8-16); BILIRUBIN - TOTAL 0.4 mg/dL (0.2-1.3); CALCIUM 9.6 mg/dL (8.5-10.1); CARBON DIOXIDE 27.5 mmol/L (21.0-32.0); CREATININE - SERUM 0.9 mg/dL (0.6-1.3); POTASSIUM - SERUM 4.2 mmol/L (3.5-5.1); PROTEIN - SERUM 6.9 g/dL (6.4-8.2)
[2017-09-19 08:54] LABS: THYROID STIMULATING HORMONE 1.08 uIU/mL (0.36-3.74)
[2017-09-19 10:02] VITALS: BP 164/94
== END 2017-09-19 09:50 | disposition home or self-care (01) ==
LOC: D.ER 07:58
PROVIDERS: Family Medicine
DX: F55.2 Abuse of laxatives (principal); E07.9 Disorder of thyroid, unspecified; J44.9 Chronic obstructive pulmonary disease, unspecified; I10 Essential (primary) hypertension; I50.9 Heart failure, unspecified

== ENCOUNTER 2017-11-22 14:25 | Emergency (ER) | payer MEDICARE, OTHER ==
[~2017-11-22] VITALS: Ht 157.5 cm; Wt 46.8 kg
[2017-11-22 14:34] VITALS: Ht 157.5 cm; Wt 46.8 kg
[2017-11-22 15:02] LABS: BASOPHILS 0.2 % (0-2); EOSINOPHILS 3.1 % (0-7); HEMATOCRIT 36.4 % (36.0-48.0); HEMOGLOBIN 11.3 g/dL (12-16); IMMATURE GRANULOCYTES 0.2 % (0-5); LYMPHOCYTES 22.2 % (15-50); MCH 27.2 pg (26.0-34.0); MCV 87.5 fL (80.0-100.0); MEAN PLATELET VOLUME 9.8 fL (7.4-10.4); MONOCYTES 6.4 % (2-11); NEUTROPHILS 67.9 % (40-80); PLATELET COUNT 165 10x3/uL (130-400); RBC 4.16 10x6/uL (4.00-5.40); RDW 13.8 % (11.5-14.5); WBC 5.9 10x3/uL (4.8-10.8)
[2017-11-22 15:21] LABS: ALBUMIN 3.5 g/dL (3.4-5.0); ALKALINE PHOSPHATASE 59 U/L (46-116); ALT (SGPT) 18 U/L (10-68); BILIRUBIN - TOTAL 0.36 mg/dL (0.2-1.3); CALC OSMOLALITY 282 mosm/kg (275-300); CALCIUM 9.6 mg/dL (8.5-10.1); CARBON DIOXIDE 32.9 mmol/L (21.0-32.0); CHLORIDE - SERUM 106 mmol/L (98-107); CREATININE - SERUM 0.7 mg/dL (0.6-1.3); GLUCOSE 108 mg/dL (74-106); POTASSIUM - SERUM 4.1 mmol/L (3.5-5.1); PROTEIN - SERUM 6.9 g/dL (6.4-8.2); SODIUM 142 mmol/L (136-145); UREA NITROGEN 9 mg/dL (7-18); eGFR NON AFRICAN AMERICAN 85 mL/min (90-120)
[2017-11-22 15:35] LABS: AMYLASE - SERUM 61 U/L (25-115); CREATINE KINASE 43 UL (21-215); LIPASE 253 U/L (73-393)
[2017-11-22 15:52] LABS: CKMB 1.7 U/L (0.0-3.6); THYROID STIMULATING HORMONE 1.43 uIU/mL (0.36-3.74)
[2017-11-22 16:01] LABS: TROPONIN-I < 0.017 ng/mL (0.000-0.060)
[2017-11-22 16:54] LABS: APPEARANCE CLEAR (CLEAR); BILIRUBIN NEGATIVE (NEGATIVE); COLOR STRAW (YELLOW); GLUCOSE NEGATIVE (NEGATIVE); KETONE NEGATIVE (NEGATIVE); NITRITE NEGATIVE (NEGATIVE); PROTEIN NEGATIVE (NEGATIVE); SPECIFIC GRAVITY 1.005 (1.005-1.020); UROBILINOGEN NORMAL (NORMAL)
[2017-11-22 19:08] VITALS: BP 198/97
== END 2017-11-22 19:08 | disposition home or self-care (01) ==
LOC: D.ER 14:25
PROVIDERS: Family Medicine
DX: J44.9 Chronic obstructive pulmonary disease, unspecified (principal); R53.1 Weakness

== ENCOUNTER 2018-01-01 11:25 | Observation (INO) | payer MEDICARE, OTHER ==
[2018-01-01] VITALS (12 sets, daily range): BP systolic 75–191; BP diastolic 40–105; Ht 157.5 cm; Wt 47.3 kg
[~2018-01-01] VITALS: Ht 157.5 cm; Wt 47.3 kg
--- NOTE | ~2018-01-01 | DS ---
PATIENT:MELISSA NAIDU :36 MEDICAL RECORD: [id number] DISCHARGE SUMMARY ADMISSION DATE: 01/01/18 DISCHARGE DATE: 01/02/18 DATE OF DISCHARGE: 01/02/2018 DIAGNOSES: 1. Unstable angina. 2. Coronary artery disease. 3. Percutaneous transluminal coronary angioplasty and stent right coronary artery this admission. HISTORY: Ms. Naidu presents with unstable anginal symptomatology, found to have significant disease of the RCA, underwent successful PTCA stent of the RCA. He was discharged home to continue aspirin and Plavix. [facility] with [facility] 1 month. TRANSINT:[id number] Voice Confirmation ID: [id number] DOCUMENT ID: [id number] YAQUELIN BRISENO MD at 1823 CC: [id number] DICTATION DATE: 01/02/18 1022 GLASS CUTTING MACHINE FEEDER: 01/02/18 1112 DIS IN 01/02/18 [id number] [place] [address]
--- NOTE | ~2018-01-01 | HEMODYNAMI ---
PATIENT:MELISSA NAIDU MEDICAL RECORD: [id number] : 36 LOCATION:[facility] COLON- ACC# [id number] ADMISSION DATE: 01/01/18 Generatedon:01/01/201816:34 Patient name: MELISSA NAIDU Patient #: [id number] SSN: D OB: 1940 Date of study: 01/01/2018 Page: Of Hemodynamic Procedure Report Patient Data Patient Demographics Procedure consent was obtained First Name: MELISSA Gender: Female Last Name: EVANGELISTA : 1940 [facility] Initial: BILLY Age: 77 year(s) Patient #: [id number] Race: Unknown Additional ID: [id number] Contact details Address: [place] [address] State: [place] City: [place] Zip code: [address] Past Medical History Allergies Allergen Reaction Date Comments Reported Other allergy 01/01/2018 DOXYCYCLINE, AMOXICILLIN, LEVAQUIN, PHENERGAN Admission Admission Data Admission Date: 01/01/2018 Admission Time: 13:56 Room #: DARLENE Lab Results Lab Result Date: 01/01/2018 Lab Result Time: 0:00 Biochemistry Name Units Result Min Max BUN mg/dl 13 --(--*-)-- 7 18 Creatinine mg/dl 1 --(--*-)-- 0.6 1.3 CBC Name Units Result Min Max Hemoglobin g/dl 11.3 *-(----)-- 13.5 17.5 Procedure Procedure Types Cath Procedure Diagnostic Procedure LHC [facility] w/Coronaries Sedation Charges Moderate Sedation up to 15 minutes PCI Procedure Coronary Stent Coronary Stent Initial Procedure Description Procedure Date Procedure Date: 01/01/2018 Procedure Start Time: 16:04 Procedure Staff Name Function Ovi Colon MD Performing Physician Flory Ferreira RT Monitor Anthony Gannon RN Nurse Jose Burnett RT Scrub Procedure Data Cath Procedure Fluoroscopy Diagnostic fluoroscopy Total fluoroscopy Time: 6.2 time: 6.2 min min Diagnostic fluoroscopy Total fluoroscopy dose: 548 dose: 548 mGy mGy Contrast Material Contrast Material Type Amount (ml) Isovue 300 127 Entry Location Entry Primary Successful Side Size Upsize Upsize Entry Closure Succes sful Closure Location (Fr) 1 (Fr) 2 (Fr) Remarks Device Remarks Femoral Right 5 Fr 6 Fr Exoseal artery Short Estimated blood loss: 10 ml Diagnostic catheters Device Type Used For End Catheter Placement MULTIPACK Pigtail 5 Fr Procedure catheter MULTIPACK JL 4.0 5Fr Procedure catheter MULTIPACK 3DRC 5Fr Procedure catheter Procedure Complications No complications Procedure Medications Medication Administration Route Dosage Oxygen NC 2 l/min Heparin Flush Bag added to field 2 bags (1000units/500ml NS) 0.9% NaCl I.V. 100 ml/hr Fentanyl I.V. 25 mcg Versed I.V. 0.5 mg Fentanyl I.V. 25 mcg Heparin Bolus I.V. 4000 units Versed I.V. 0.5 mg Hemodynamics Rest Pre Cath Intra NCS Post Cath Vital Signs Time Heart Resp SPO2 etCO2 NIBP (mmHg) Rhythm Pain Sedation Rate (ipm) (%) (mmHg) Status Level (bpm) 15:48:16 57 16 99 0 192/91(156) NSR 0 (11) 10(A) , No pain 15:52:40 54 18 99 0 189/87(147) NSR 0 (11) 10(A) , No pain 15:57:07 49 17 98 0 176/79(128) NSR 0 (11) 10(A) , No pain 16:01:28 48 17 98 0 160/76(119) NSR 0 (11) 10(A) , No pain 16:05:45 52 16 98 0 156/77(125) NSR 0 (11) 10(A) , No pain 16:10:01 62 16 98 0 147/78(113) NSR 0 (11) 10(A) , No pain 16:14:13 70 17 96 0 147/77(111) NSR 0 (11) 10(A) , No pain 16:18:27 67 16 96 0 127/72(95) NSR 0 (11) 10(A) , No pain 16:22:32 66 17 96 0 133/77(107) NSR 0 (11) 10(A) , No pain 16:26:38 61 16 98 0 153/80(124) NSR 0 (11) 10(A) , No pain Medications Time Medication Route Dose Verified Delivered Reason Notes Effectiveness by by 15:50:29 Oxygen NC 2 Ovi Cruz Per physician l/min Isaiah Gannon RN 15:50:40 Heparin Flush added 2 Ovi Cruz used for Bag to bags Isaiah Gannon RN procedure (1000units/500ml field NS) 15:50:49 0.9% NaCl I.V. 100 Ovi Cruz Per physician ml/hr Isaiah Gannon RN 16:04:55 Fentanyl I.V. 25 Ovi Cruz for sedation mcg Isaiah Gannon RN 16:05:02 Versed I.V. 0.5 Ovi Cruz for sedation mg Isiaah Gannon RN 16:08:23 Fentanyl I.V. 25 Ovi Cruz for sedation mcg Isaiah Gannon RN 16:12:34 Heparin Bolus I.V. 4000 Ovi Cruz for units Isaiah Gannon RN anticoagulation 16:26:42 Versed I.V. 0.5 Ovi Cruz for sedation mg Isaiah Gannon RN Procedure Log Time Note 15:27:56 Time tracking: Regular hours (M-F 7:00 - 5:00) 15:28:00 Plan of Care:Hemodynamics will remain stable., Cardiac rhythm will remain stable., Comfort level will be maintained., Respiratory function will remain adequate., Patient/ family verbilizes understanding of procedure., Procedure tolerated without complication., Recovers from procedure without complications.. 15:28:03 Signed procedure consent form obtained from patient. 15:28:05 Diagnostic Cath status Elective 15:28:10 Anthony Gannon RN sent for patient. Start room use. 15:30:42 H&P Date Dictated: 01/01/2018 ER History on chart.. 15:31:03 Lab Result : BUN 13 mg/dl 15:31:03 Lab Result : Creatinine 1 mg/dl 15:31:03 Lab Result : Hemoglobin 11.3 g/dl 15:40:24 Patient received from ED to CCL 2 Alert and oriented. Tansferred to table in Supine position. 15:40:26 Warm blankets applied, and jamie hugger turned on for patient comfort. 15:40:26 Correct patient and procedure confirmed by team. 15:40:35 ECG and BP/O2 sat monitors applied to patient. 15:46:03 Vital chart was started 15:49:10 Full Disclosure recording started 15:49:11 Pre-procedure instructions explained to patient. 15:49:11 Pre-op teaching completed and patient verbalized understanding. 15:49:17 Family in waiting room. 15:49:21 Patient NPO since Lunch. 15:50:04 Patient allergic to Other allergyDOXYCYCLINE, AMOXICILLIN, LEVAQUIN, PHENERGAN 15:50:06 Is the patient allergic to Iodine/contrast media? No. 15:50:09 Is patient on blood thinner?Yes 15:50:12 ACC The patient was administered the following blood thiners within the last 24 hours: ACCPlavix 15:50:14 Patient diabetic? No. 15:50:18 Patient not . Patient is over age 55. 15:50:20 Previous problem with sedation/anesthesia? No ? 15:50:21 Snore? Yes 15:50:22 Sleep apnea? No 15:50:23 Deviated septum? No 15:50:24 Opens mouth fully? Yes 15:50:25 Sticks out tongue? Yes 15:50:29 Oxygen 2 l/min NC was administered by Anthony Gannon RN; Per physician; 15:50:31 Airway obstruction? Yes COPD EMPHYSEMA\ 15:50:40 Heparin Flush Bag (1000units/500ml NS) 2 bags added to field was administered by Anthony Gannon RN; used for procedure; 15:50:49 0.9% NaCl 100 ml/hr I.V. was administered by Anthony Gannon RN; Per physician; 15:52:45 Dentures? Yes IN 15:52:48 Pre procedure: right dorsailis pedis pulse 2+ Normal; easily identifiable; not easily obliterated 15:52:53 Patient pain scale 0/10 ?. 15:53:23 IV patent on arrival in left forearm with 0.9% NaCl at [facility]. 15:53:26 Lab results completed and on chart. 15:53:29 Right groin area was prepped with chlora-prep and draped in sterile fashion 15:53:30 Alarms reviewed by R. N. 15:53:30 Sharps counted by scrub and verified by R.N. 15:53:31 Sharps counted by scrub and verified by R.N. 15:54:21 Use device set Femoral Dx 15:54:22 ACIST Syringe (02194) opened to sterile field. 15:54:23 Bag Decanter (2002S) opened to sterile field. 15:54:25 ACIST Hand Control (82988) opened to sterile field. 15:54:25 ACIST Manifold (60721) opened to sterile field. 15:54:26 Tegaderm 4 x 4 (1626W) opened to sterile field. 15:54:27 Medline Cath Pack ([id number]) opened to sterile field. 15:54:28 DIAGNOSTIC WIRE .035 260cm J wire (257197) opened to sterile field. 15:54:29 DIAGNOSTIC Multipack 5Fr catheter set (MM3923) opened to sterile field. 15:54:31 SHEATH Prelude 5Fr 0.035 (TZW-1F-91-035) opened to sterile field. 16:02:17 --------ALL STOP TIME OUT------ 16:02:17 Final Timeout: patient, procedure, and site verified with staff and physician. All members of the team are in agreement. 16:02:32 Right groin site verified by team. 16:02:35 Physical assessment completed. ASA score P 3 - A patient with severe systemic disease as per Ovi Colon MD. 16:02:38 Sedation plan: IV Moderate Sedation Medication:Versed, Fentanyl 16:03:12 Zero performed for pressure channel P1 16:04:33 Procedure started. 16:04:52 Local anesthetic to right femoral artery with Lidocaine 2% by Ovi Colon MD.INITIAL ACCESS ONLY 16:04:55 Fentanyl 25 mcg I.V. was administered by Anthony Gannon RN; for sedation; 16:05:02 Versed 0.5 mg I.V. was administered by Anthony Gannon RN; for sedation; 16:05:21 A 5 Fr sheath was inserted into the Right Femoral artery 16:05:26 A MULTIPACK Pigtail 5 Fr catheter was advanced over the wire and used for Procedure. 16:06:08 LV gram done using ESPINO 16:06:10 Injector settings: Ml/sec: 10, Volume: 20, 16:06:16 EF : 60 % 16:06:18 Catheter removed. 16:06:28 A MULTIPACK JL 4.0 5Fr catheter was advanced over the wire and used for Procedure. 16:07:34 LCA angiography performed. 16:08:22 Catheter removed. 16:08:23 Fentanyl 25 mcg I.V. was administered by Anthony Gannon RN; for sedation; 16:08:28 A MULTIPACK 3DRC 5Fr catheter was advanced over the wire and used for Procedure. 16:09:40 RCA angiography performed. 16:09:41 Catheter removed. 16:10:26 SHEATH 6FR [place]oa (QYD390) opened to sterile field. 16:10:27 INFLATOR Merit BasixCompak (GB3208) opened to sterile field. 16:10:28 CHOICE PT Extra Support 182cm wire ([id number]) opened to sterile field. 16:11:38 Sheath upsized to a 6 Fr Short. 16:12:08 GUIDE 6FR HS I SH catheter ([id number]) opened to sterile field. 16:12:18 6 Fr HS1 SH guide catheter was inserted over the wire 16:12:34 Heparin Bolus 4000 units I.V. was administered by Anthony Gannon RN; for anticoagulation; 16:13:18 CHOICE ES 182 wire advanced. 16:14:17 Inflate balloon Inflation number: 1 A EUPHORA 2.0 x 15 Balloon ([id number]) was prepped and advanced across the Mid RCA, then inflated to 11 DAVID for 0:10 (min:sec). 16:14:25 Inflation number: 2 The EUPHORA 2.0 x 15 Balloon ([id number]) was reinflated across the Mid RCA, to 11 DAVID for 0:10 (min:sec). 16:14:35 Inflation number: 3 The EUPHORA 2.0 x 15 Balloon ([id number]) was reinflated across the Mid RCA, to 11 DAVID for 0:10 (min:sec). 16:14:47 Balloon removed over the wire. 16:16:25 Place stent Inflation Number: 4 A BEN RX 2.0 x 30 stent ([id number]) was prepped and advanced across the Mid RCA. The stent was deployed at 11 DAVID for 0:10 (min:sec). 16:16:52 Stent catheter was removed intact over wire. 16:18:20 Inflation number: 5 The EUPHORA 2.0 x 15 Balloon ([id number]) was reinflated across the Mid RCA, to 11 DAVID for 0:10 (min:sec). 16:18:35 Inflation number: 6 The EUPHORA 2.0 x 15 Balloon ([id number]) was reinflated across the Mid RCA, to 15 DAVID for 0:10 (min:sec). 16:21:28 Timer 1 started at 4:20 PM, stopped at 4:21 PM, duration 00:01:03 sec. 16:22:11 Balloon removed over the wire. 16:22:12 Wire removed. 16:22:12 Guide catheter removed. 16:22:26 EXOSEAL 6Fr (EX600) opened to sterile field. 16:23:38 Sheath removed intact; hemostasis achieved with Exoseal to the Right Femoral artery. 16:23:41 Procedure ended.(Physican Out) 16:24:14 Fluoroscopy time 06.20 minutes. 16:24:21 Flurop Dose total: 548 16:24:21 Fluoroscopy dose: 548 mGy 16:24:26 Contrast amount:Isovue 300 127ml. 16:24:27 Sharps counted by scrub and verified by R.N. 16:24:30 Post-op/insertion site Right Femoral artery dressed using a 4 x 4 and Tegaderm. 16:24:35 Post right femoral artery:stable, soft, clean and dry 16:24:38 Post-procedure physical assessment completed. ASA score P 3 - A patient with severe systemic disease as per Oiv Colon MD. 16:24:45 Post procedure rhythm: sinus rhythm 16:24:51 Estimated blood loss: 10 ml 16:24:58 Post procedure instruction explained to patient.Patient verbalizes understanding. 16:24:59 Patient needs reinforcement of post procedure teaching. 16:25:31 Procedure type changed to Cath procedure, Diagnostic procedure, LHC, LHC w/Coronaries, Sedation Charges, Moderate Sedation up to 15 minutes, PCI procedure, Coronary Stent, Coronary Stent Initial 16:25:57 Procedure and supply charges have been captured, reviewed, submitted and are correct. 16:25:59 Procedure Complication : No complications 16:26:01 Vital chart was stopped 16:26:01 See physician's report for complete and final results. 16:26:04 Report given to PCU. 16:26:07 Patient transfered to PCU with Bed. 16:26:08 End room use (Document Last) 16:26:42 Versed 0.5 mg I.V. was administered by Anthony Gannon RN; for sedation; 16:33:43 FEMSTOP Gold ([id number]) opened to sterile field. 16:33:49 Femstop placed over the right femoral artery at 150 mmHg. Hemostasis achieved. Intervention Summary Intervention Notes Time ActionType Lesion and Equipment Used Action# Pressure Duration Attributes 16:14:17 Inflate Mid RCA EUPHORA 2.0 x 1 11 00:10 balloon 15 Balloon ([id number]) 16:14:25 Reinflate Mid RCA EUPHORA 2.0 x 2 11 00:10 balloon 15 Balloon ([id number]) 16:14:35 Reinflate Mid RCA EUPHORA 2.0 x 3 11 00:10 balloon 15 Balloon ([id number]) 16:16:25 Place stent Mid RCA BEN RX 2.0 x 4 11 00:10 30 stent ([id number]) 16:18:20 Reinflate Mid RCA EUPHORA 2.0 x 5 11 00:10 balloon 15 Balloon ([id number]) 16:18:35 Reinflate Mid RCA EUPHORA 2.0 x 6 15 00:10 balloon 15 Balloon ([id number]) Device Usage Item Name Manufacture Quantity Catalog Number Hospital Part Current M inimal Lot# / Charge Number Stock Stock Serial# Code ACIST Syringe Acist 1 23895 620766 789675 508514 2 0 (74660) [employer] Bag Decanter Microtek 1 2001S 284925 02638 152685 5 (2001S) Medical Inc. ACIST Hand Acist 1 01789 051544 366149 588765 5 Control (43393) [employer] Inc ACIST Manifold Acist 1 96103 751342 285835 882017 5 (26226) [employer] Inc Tegaderm 4 x 4 3M 1 1626W 214743 066735 758116 5 (1626W) Medline Cath Cardinal 1 [id number] 950920 24259 315686 5 [facility] ([id number]) DIAGNOSTIC WIRE St Silverio 1 966774 449706 087522 921557 3 0 .035 260cm J wire (526548) DIAGNOSTIC Cardinal 1 DI9251 810003 61297 881669 3 0 Multipack 5Fr Health catheter set (DN9342) SHEATH Prelude Merit 1 ZEM-7V-08-035 159528 490737 607304 5 5Fr 0.035 Medical (LPV-3W-49-035) MULTIPACK Cardinal 1 752525 5 Pigtail 5 Fr Health catheter MULTIPACK JL Cardinal 1 247712 5 4.0 5Fr Health catheter MULTIPACK 3DRC Cardinal 1 662709 5 5Fr catheter Health SHEATH 6FR Terumo 1 OVH847 675298 929388 005194 4 0 Peoa (VXF950) INFLATOR Merit Merit 1 FW1163 071639 230566 561700 1 5 BMP [employer] (VS6099) CHOICE PT Extra [place] 1 [id number] 597332 152936 558519 5 Support 182cm Scientific wire ([id number]) GUIDE 6FR HS I Medtronic 1 [id number] 491785 18460 719528 1 SH catheter ([id number]) EUPHORA 2.0 x Medtronic 1 [id number] 506676 048497 590302 5 [id number] 15 Balloon ([id number]) BEN RX 2.0 x Medtronic 1 [id number] 651985 397575 292647 5 [id number] 30 stent ([id number]) EXOSEAL 6Fr Cardinal 1 EX600 322221 871694 939804 1 0 (EX600) Health FEMSTOP Gold St Silverio 1 B82159 505742 264624 522417 5 ([id number]) Signature Audit [place] Stage Time Signature Unsigned Intra-Procedure 01/01/2018 Flory Ferreira 4:34:39 PM RT(R) Signatures Monitor : Flory Ferreira Signature : RT Date : Time : [facility] [address] [place] [address]
--- NOTE | ~2018-01-01 | OP ---
PATIENT NAME: MELISSA NAIDU MEDICAL RECORD: [id number] :36 LOCATION:D.M2 D.2119 ADMISSION DATE:01/01/18 SURGEON: YAQUELIN BRISENO MD DATE OF OPERATION: 01/01/2018 DATE OF SERVICE: 01/01/2018 PROCEDURES: 1. PTCA stent RCA. 2. Left heart catheterization. 3. Selective coronary angiography. 4. Left ventriculogram. INDICATION: Angina and coronary artery disease. PROCEDURE IN DETAIL: After informed consent was obtained and after a detailed explanation of risks, benefits as well as alternative therapies, the patient elected to proceed with angiogram and angioplasty. The right femoral area was prepped and draped in normal sterile fashion. The right femoral artery was cannulated via modified Seldinger technique with placement of 6-Greek sheath. All catheters exchanged through this sheath. FINDINGS: The left ventriculogram was performed in the standard 30-degree ESPINO view reveals good cardiac wall motion throughout all segments. Overall ejection fraction estimated at 60%. SELECTIVE CORONARY ANGIOGRAPHY: 1. Left main is with no significant angiographic disease. 2. Left anterior descending has no disease in the proximal vessel. The faa-ke-lbxscc vessel is very small moderately diffusely diseased. 3. The left circumflex is a large vessel, very distally the vessel has 90% stenosis, but there is no significant vessel after this. 4. Right coronary has 95% stenosis times 2, about the mid vessel, this is relatively small vessel. TRAINING CONSULTANT STENT OF THE RCA: The stent used was a 2.0 x 30 mm [place]. Result was 0% residual stenosis. OVERALL IMPRESSION: Successful percutaneous transluminal coronary angioplasty stent of the right coronary artery going from 95% initial stenosis to 0% residual stenosis. Otherwise, her vascular disease needs to be treated medically due to the small size of the vessels. TRANSINT:[id number] Voice Confirmation ID: [id number] DOCUMENT ID: [id number] YAQUELIN BRISENO MD at 1823 CC: [id number] DICTATION DATE: 01/01/18 1629 EDGE TRIMMER: 01/01/18 1730 DIS IN 01/02/18 [facility] [address] [place] [address]
[2018-01-01] MEDS ORDERED: LISINOPRIL2.5 MG PO (11:51)
[2018-01-01] MEDS ORDERED: ASPIRIN81 MG PO (11:51)
[2018-01-01] MEDS ORDERED: LISINOPRIL10 MG PO (11:52)
[2018-01-01] MEDS ORDERED: ANORO ELLIPTA1 EACH INH (11:54)
[2018-01-01 12:25] LABS: BASOPHILS 0.2 % (0-2); EOSINOPHILS 1.7 % (0-7); HEMATOCRIT 35.8 % (36.0-48.0); HEMOGLOBIN 11.3 g/dL (12-16); IMMATURE GRANULOCYTES 0.2 % (0-5); LYMPHOCYTES 24.2 % (15-50); MCHC 31.6 g/dL (31.0-37.0); MCV 85.4 fL (80.0-100.0); MONOCYTES 5.7 % (2-11); PLATELET COUNT 152 10x3/uL (130-400); RBC 4.19 10x6/uL (4.00-5.40); RDW 14.4 % (11.5-14.5)
[2018-01-01 12:30] LABS: ALBUMIN 3.5 g/dL (3.4-5.0); ALKALINE PHOSPHATASE 56 U/L (46-116); ALT (SGPT) 11 U/L (10-68); BILIRUBIN - TOTAL 0.43 mg/dL (0.2-1.3); CALC OSMOLALITY 289 mosm/kg (275-300); CALCIUM 9.6 mg/dL (8.5-10.1); CARBON DIOXIDE 31.8 mmol/L (21.0-32.0); CHLORIDE - SERUM 105 mmol/L (98-107); POTASSIUM - SERUM 3.5 mmol/L (3.5-5.1); PROTEIN - SERUM 6.9 g/dL (6.4-8.2); SODIUM 144 mmol/L (136-145); UREA NITROGEN 13 mg/dL (7-18); eGFR NON AFRICAN AMERICAN 57 mL/min (90-120)
[2018-01-01 12:34] LABS: GLUCOSE 160 mg/dL (74-106)
[2018-01-01 12:38] LABS: CREATINE KINASE 40 UL (21-215); PRO BNP 1185 pg/mL (0-450)
[2018-01-01 12:41] LABS: TROPONIN-I < 0.017 ng/mL (0.000-0.060)
[2018-01-02 06:56] VITALS: BP 139/89
[2018-01-02 08:21] VITALS: BP 105/58
== END 2018-01-02 11:32 | disposition home or self-care (01) ==
LOC: D.ER 11:25 → D.EDHOLD 13:56 → OBSVTIME 13:56 → D.EDHOLD 13:56 → D.CLR 16:11 → D.M2 16:47
PROVIDERS: Emergency Medicine
DX: I25.110 Atherosclerotic heart disease of native coronary artery with unstable angina pectoris (principal); Z95.5 Presence of coronary angioplasty implant and graft; I11.0 Hypertensive heart disease with heart failure; I50.9 Heart failure, unspecified; J44.9 Chronic obstructive pulmonary disease, unspecified; K21.9 Gastro-esophageal reflux disease without esophagitis; F41.9 Anxiety disorder, unspecified; F32.9 Major depressive disorder, single episode, unspecified

== ENCOUNTER 2018-05-12 11:00 | Emergency (ER) | payer MEDICARE, OTHER ==
[~2018-05-12] VITALS: Ht 157.5 cm; Wt 46.4 kg
[~2018-05-12 11:00] MED LIST changes: +ANORO ELLIPTA1 EACH INH; +LISINOPRIL10 MG PO; +LISINOPRIL2.5 MG PO
[2018-05-12 11:17] VITALS: Ht 157.5 cm; Wt 46.4 kg
[2018-05-12] MEDS ORDERED: LASIX40 MG PO (11:20)
[2018-05-12] MEDS ORDERED: POTASSIUM CHLO10 ME1 PO (11:21)
[2018-05-12 12:05] LABS: BASOPHILS 0.2 % (0-2); EOSINOPHILS 0.9 % (0-7); HEMATOCRIT 36.4 % (36.0-48.0); HEMOGLOBIN 11.9 g/dL (12-16); IMMATURE GRANULOCYTES 0.5 % (0-5); LYMPHOCYTES 13.9 % (15-50); MCH 27.7 pg (26.0-34.0); MCHC 32.7 g/dL (31.0-37.0); MCV 84.8 fL (80.0-100.0); MEAN PLATELET VOLUME 8.8 fL (7.4-10.4); MONOCYTES 7.1 % (2-11); NEUTROPHILS 77.4 % (40-80); PLATELET COUNT 180 10x3/uL (130-400); RBC 4.29 10x6/uL (4.00-5.40); RDW 14.1 % (11.5-14.5); WBC 8.8 10x3/uL (4.8-10.8)
[2018-05-12 12:12] LABS: APPEARANCE CLEAR (CLEAR); COLOR STRAW (YELLOW)
[2018-05-12 12:13] LABS: BILIRUBIN NEGATIVE (NEGATIVE); GLUCOSE NEGATIVE (NEGATIVE); KETONE NEGATIVE (NEGATIVE); NITRITE NEGATIVE (NEGATIVE); PROTEIN NEGATIVE (NEGATIVE); SPECIFIC GRAVITY 1.005 (1.005-1.020); UROBILINOGEN NORMAL (NORMAL)
[2018-05-12 12:15] LABS: APTT 23.1 SECONDS (22.8-39.4); INR 0.94 (0.85-1.17); PROTIME 12.1 SECONDS (11.6-15.0)
[2018-05-12 12:17] LABS: ALBUMIN 3.8 g/dL (3.4-5.0); ALKALINE PHOSPHATASE 88 U/L (46-116); ALT (SGPT) 17 U/L (10-68); BILIRUBIN - TOTAL 0.39 mg/dL (0.2-1.3); CALC OSMOLALITY 269 mosm/kg (275-300); CALCIUM 9.7 mg/dL (8.5-10.1); CARBON DIOXIDE 27.3 mmol/L (21.0-32.0); CHLORIDE - SERUM 96 mmol/L (98-107); CREATININE - SERUM 1.2 mg/dL (0.6-1.3); POTASSIUM - SERUM 4.1 mmol/L (3.5-5.1); PROTEIN - SERUM 7.2 g/dL (6.4-8.2); SODIUM 133 mmol/L (136-145); UREA NITROGEN 24 mg/dL (7-18); eGFR NON AFRICAN AMERICAN 46 mL/min (90-120)
[2018-05-12 12:20] LABS: GLUCOSE 107 mg/dL (74-106)
[2018-05-12 12:28] LABS: AMYLASE - SERUM 102 U/L (25-115); CKMB 1.2 U/L (0.0-3.6); CREATINE KINASE 53 UL (21-215); LIPASE 435 U/L (73-393)
[2018-05-12 12:32] LABS: TROPONIN-I < 0.017 ng/mL (0.000-0.060)
[2018-05-12 16:40] VITALS: BP 157/70
== END 2018-05-12 16:40 | disposition home or self-care (01) ==
LOC: D.ER 11:00
PROVIDERS: Family Medicine
DX: R07.9 Chest pain, unspecified (principal); M79.18 Myalgia, other site; I10 Essential (primary) hypertension; J44.9 Chronic obstructive pulmonary disease, unspecified; Z99.81 Dependence on supplemental oxygen

== ENCOUNTER 2018-06-12 18:43 | Inpatient (IN) | payer MEDICARE, OTHER ==
[~2018-06-12] VITALS: Ht 157.5 cm; Wt 46.3 kg
[~2018-06-12 18:43] MED LIST changes: +LASIX40 MG PO; +POTASSIUM CHLO10 ME1 PO
[2018-06-12 20:15] LABS: BASOPHILS 0.1 % (0-2); EOSINOPHILS 0.1 % (0-7); HEMATOCRIT 39.8 % (36.0-48.0); HEMOGLOBIN 12.9 g/dL (12-16); IMMATURE GRANULOCYTES 0.7 % (0-5); LYMPHOCYTES 10.2 % (15-50); MCH 27.6 pg (26.0-34.0); MCHC 32.4 g/dL (31.0-37.0); MONOCYTES 9.3 % (2-11); NEUTROPHILS 79.6 % (40-80); PLATELET COUNT 212 10x3/uL (130-400); RBC 4.68 10x6/uL (4.00-5.40); RDW 14.6 % (11.5-14.5); WBC 9.7 10x3/uL (4.8-10.8)
[2018-06-12 20:28] LABS: APTT 20.2 SECONDS (22.8-39.4); INR 0.95 (0.85-1.17); PROTIME 12.2 SECONDS (11.6-15.0)
[2018-06-12 20:30] LABS: D-DIMER-QUANTITATIVE 1.39 ug/mLFEU (0.20-0.54)
[2018-06-12 20:31] LABS: ALBUMIN 3.5 g/dL (3.4-5.0); ALKALINE PHOSPHATASE 80 U/L (46-116); ALT (SGPT) 18 U/L (10-68); CALC OSMOLALITY 272 mosm/kg (275-300); CALCIUM 9.6 mg/dL (8.5-10.1); CARBON DIOXIDE 30.1 mmol/L (21.0-32.0); CHLORIDE - SERUM 96 mmol/L (98-107); CREATININE - SERUM 1.1 mg/dL (0.6-1.3); GLUCOSE 107 mg/dL (74-106); POTASSIUM - SERUM 4.3 mmol/L (3.5-5.1); PROTEIN - SERUM 6.6 g/dL (6.4-8.2); SODIUM 136 mmol/L (136-145); UREA NITROGEN 14 mg/dL (7-18); eGFR NON AFRICAN AMERICAN 51 mL/min (90-120)
[2018-06-12 20:42] LABS: CKMB 0.5 U/L (0.0-3.6); CREATINE KINASE 32 UL (21-215)
[2018-06-12 20:45] LABS: TROPONIN-I < 0.017 ng/mL (0.000-0.060)
[2018-06-12 21:26] VITALS: BP 116/66
--- NOTE | 2018-06-12 23:15 | NUR ---
ADDED PATIENT TO TELE WAIT LIST. NO MONITORS AVAILABLE AT THIS TIME.
[2018-06-13] VITALS (7 sets, daily range): BP systolic 91–129; BP diastolic 53–79; Ht 157.5 cm; Wt 46.3 kg
--- NOTE | 2018-06-13 09:31 | NUR ---
CALLED SAMSON CABRAL AND INFORMED HER THAT PT IS REQUESTING TO HAVE HER XANAX STARTED. PT TAKES 0.5MG PO [id number]. SAMSON STATED THAT IT WOULD BE OK TO START MEDICATION.
--- NOTE | 2018-06-13 10:47 | NUR ---
CALLED [employer] AND SPOKE WITH BURKE, INFORMED HER THAT I NEED SCD MACHINE FOR PT.
--- NOTE | 2018-06-13 11:21 | MORECARE ---
CASE MANAGEMENT DISCHARGE SUMMARY PATIENT: MELISSA NAIDU UNIT: [id number] ADM DATE: 06/12/18 AGE: 78 : 38 SEX: F ROOM/BED: D.1206 AUTHOR: KEVIN HARRELL PHYSICIAN: REFERRING PHYSICIAN: PERRY MADDEN MD DATE OF SERVICE: 06/13/18 Discharge Plan Patient Name: MELISSA NAIDU Facility: [facility]:[place] : 1940 Planned Disposition: Anticipated Discharge Date: Discharge Date: Expected LOS: Initial Reviewer: [email or web address] Initial Review Date: 06/13/2018 Generated: 06/13/18 12:20 pm Comments DCP- Discharge Planning Updated by [email or web address]: Ashley Varghese on 06/13/18 10:[address] Patient Name: MELISSA NAIDU Admission Status: ER Accout number: [id number] Admission Date: 06-12-2018 : 1940 Admission Diagnosis: Attending: PERRY MADDEN Current LOS: 1 Anticipated DC Date: Planned Disposition: Primary Insurance: MEDICARE A & B Discharge Planning Comments: CM MET WITH PATIENT ABOUT DISCHARGE PLANNING/NEEDS. PLANS TO DC TO HOME WITH HER DAUGHTER. HAS ALL DME SHE NEEDS THERE. CM TALKED WITH HER ABOUT HH AND REHAB. PATIENT STATES SHE DOESN'T WANT REHAB, SHE WANTS TO GO HOME, NOT SURE ABOUT HH, SHE WANTS TO TALK TO HER DAUGHTER FIRST. CM WILL FOLLOW AND ASSIST NEEDED WITH DC PLANNING/NEEDS. Hospital Administrative Assistant: Ashley Varghese DCPIA - Discharge Planning Initial Assessment Updated by [email or web address]: Ashley Varghese on 06/13/18 11:17 am * Is the patient Alert and Oriented? Yes * PCP CINTHIA * Pharmacy [facility] * Preadmission Environment Home with Family * ADLs Independent * Equipment Cane Nebulizer Oxygen Walker Wheelchair * Other Equipment PORTABLE 02 * List name and contact numbers for known caregivers / representatives who currently or will assist patient after discharge: SMITA ZAPATA , * Community resources currently utilized None * Additional services required to return to the preadmission environment? No * Can the patient safely return to the preadmission environment? Yes * Has this patient been hospitalized within the prior 30 days at any hospital? No Patient Name: MELISSA NAIDU Page 91878 at 1121 All edits/amendments must be made on the electronic document DICTATION DATE: 06/13/181119 WASTE MACHINE OPERATOR: HILDA 06/13/181119 RPT#: [id number] DC DATE: STATUS: ADM IN [facility] [address] [place] [address] END OF REPORT
--- NOTE | 2018-06-13 16:27 | NUR ---
CT COULD NOT DO CTA DUE TO PT'S IV NOT WORKING WELL. CALLED SAMSON CABRAL AND INFORMED HER AND ASKED HER IF THEY COULD DO A VQ SCAN INSTEAD. SAMSON CABRAL STATED THAT THE CTA NEEDED TO BE DONE BECAUSE IT IS BETTER. STATED TO CONSULT VASCULAR NURSE FOR ANOTHER 20G IV OR MIDLINE. WILL PUT IN CONSULT FOR VASCULAR NURSE AND NOTIFY CT.
--- NOTE | 2018-06-13 20:05 | NUR ---
RESUMING PT CARE. PT IS ALERT SITTING IN CHAIR WATCHING TV. NO C/O VOICED AT THIS TIME. NO S/S OF ACUTE DISTRESS. PT HAS A LEFT UPPER IV. PT IS ON 2 LITERS OF O2. BED IN LOW POSITION WITH CALL LIGHT IN REACH. WILL CONTINUE TO MONITOR PT AND FOLLOW PLAN OF CARE.
[2018-06-14] VITALS (7 sets, daily range): BP systolic 84–129; BP diastolic 49–75
--- NOTE | 2018-06-14 03:16 | NUR ---
I AGREE WITH DRAMA TEACHER ASSESSMENT THIS SHIFT.
--- NOTE | 2018-06-14 07:00 | NUR ---
INITIAL ROUNDING ON THE PATIENT, SHE IS AWAKE AND ALERT, RESTING IN BED. O2 VIA NC IN PLACE, CALL LIGHT IN REACH. INSTRUCTED THE PATIENT ON THE NEED TO COLLECT A STOOL SAMPLE.
[2018-06-14 16:06] LABS: BASOPHILS 0 % (0-2); EOSINOPHILS 0.1 % (0-7); IMMATURE GRANULOCYTES 0.3 % (0-5); LYMPHOCYTES 3.7 % (15-50); MCHC 32.2 g/dL (31.0-37.0); MCV 83.9 fL (80.0-100.0); MEAN PLATELET VOLUME 8.8 fL (7.4-10.4); MONOCYTES 2.6 % (2-11); NEUTROPHILS 93.3 % (40-80); PLATELET COUNT 178 10x3/uL (130-400); RDW 14.9 % (11.5-14.5); WBC 9.7 10x3/uL (4.8-10.8)
[2018-06-14 16:08] LABS: HEMATOCRIT 29.8 % (36.0-48.0); HEMOGLOBIN 9.6 g/dL (12-16); RBC 3.55 10x6/uL (4.00-5.40)
[2018-06-14 16:17] LABS: ANION GAP 15.1 mmol/L (8-16); BILIRUBIN - TOTAL 0.17 mg/dL (0.2-1.3); CALCIUM 9.4 mg/dL (8.5-10.1); CARBON DIOXIDE 27.7 mmol/L (21.0-32.0); POTASSIUM - SERUM 3.8 mmol/L (3.5-5.1); PROTEIN - SERUM 6.3 g/dL (6.4-8.2)
[2018-06-14 16:26] LABS: CREATININE - SERUM 1.7 mg/dL (0.6-1.3)
[2018-06-14 16:27] LABS: ALBUMIN 2.6 g/dL (3.4-5.0)
--- NOTE | 2018-06-14 20:55 | NUR ---
RESUMING PT CARE. PT IS ALERT LAYING IN BED WATCHING TV WITH NO C/O VOICED. NO S/S OF ACUTE DISTRESS. PT HAS A IV IN THE LEFT FOREARM. IV IN THE LT HAND AND LT WRIST WHICH ARE SALINE LOCK. PT IS ON 2 LITERS OF O2. BED IN LOW POSITION WITH CALL LIGHT IN REACH. WILL CONTINUE TO MONITOR PT AND FOLLOW PLAN OF CARE.
--- NOTE | 2018-06-15 00:13 | NUR ---
THE PATIENT APPEARS TO BE SLEEPING. BED IS IN THE LOW POSITION WITH SIDERAILS X2 AND CALL LIGHT WITHIN REACH.
[2018-06-15 04:30] VITALS: BP 104/67
[2018-06-15 07:39] VITALS: BP 107/61
[2018-06-15 11:22] VITALS: BP 97/70
--- NOTE | 2018-06-15 13:26 | NUR ---
Nutrition follow-up: Received consult re: poor po intake Visited with pt who reports she ate good yesterday; she even scraped her dinner plate clean. Pt states she has not been very hungry today; very tired after working with PT. Pt did say her hands hurt and it is hard to feed herself at times. RDN provided pt with a taped washcloth to slip utensil into to make grasping easier. Left it on pts tray table and asked nurse and WASHER OPERATOR to assist pt in putting utensil in. WASHER OPERATOR for the floor ignored me. RDN will order Vanilla Boost or Ensure with meals; pt states she likes them and will drink them. RDN will also order 48 hour calorie count. Following.
[2018-06-15 15:21] VITALS: BP 91/63
--- NOTE | 2018-06-15 19:16 | NUR ---
PT RESTING IN BED. ASSESSMENT COMPLETE. PT IS AAO, HAS SCD'S ON BILATERAL LOWER EXTREM. WEARING GLASSES. HEARTRATE IRREGULAR. NO TELEMETRY ON WILL CHECK ORDERS. PT RIGHT LOWER LOBE IS DIMINISHED. 1/2 NS INFUSING AT 75 TO LEFT WRIST 20G. PT ALSO HAS A RIGHT WRIST 22G AND A RIGHT WRIST 20G WILL CHECK TO SEE IF PATENT. PT HAS ANXIETY REGARDING IRREGULAR HEART RATE. 2.5L O2 NC. PT STATES ONLY HISTORY REGARDING HEART IS THE LEFT CHEST PACEMAKER,CHF AND STENTS, WILL PLACE TELEMETRY AND CHECK RHYTHM. NAME AND DATE PLACED ON BOARD. BEDLOW AND CALL LIGHT IN REACH. WILL CPOC
[2018-06-15 20:00] VITALS: BP 88/59
--- NOTE | 2018-06-15 20:20 | NUR ---
PT UP TO BR WITH ASSISTANCE, GAIT SLIGHTLY UNSTEADY, PT VOIDED SMALL AMOUNT WITH NO DIFFICULTY, PT BACK TO BED, SCD'S REAPPLIED AND WORKING PROPERLY, TELEMETRY PLACED, PT DENIES FURTHER NEEDS, BED IN LOW POSITION, SIDE RAILS X 2, CALL LIGHT IN REACH
--- NOTE | 2018-06-15 20:38 | NUR ---
PT HEART RATE IS IRREGULAR IN THE 150'S PT DENIES ANY CARDIAC HISTORY BESIDES CHF. PT HAS AN ORDER FOR TELEMETRY CALLED AND OBTAINED TELEMETRY TO PLACE ON PT. PT IS 89 UNCONTROLLED A-FIB CALLED [facility] SMOKER CARTRIDGE ASSEMBLER TO REPORT CHANGE IN STATUS
--- NOTE | 2018-06-15 20:56 | NUR ---
DR ENRIQUE FROM ER SAID NURSE HAS TO CALL [facility] DOCTOR.
--- NOTE | 2018-06-15 20:56 | NUR ---
NO CALL BACK. ABHIJEET SHOOKCENTRAL SERVICE TECHNICIAN SAID TO CALL ER DOCTOR
--- NOTE | 2018-06-15 21:01 | NUR ---
SPOKE WITH DR MADDEN HE STATED TO CONSULT CARDIOLOGY AND GIVE 0.125 DIGOXIN
--- NOTE | 2018-06-15 21:14 | NUR ---
PAGED DR BRISENO FOR THE CONSULT.
--- NOTE | 2018-06-15 21:16 | NUR ---
SPOKE TO DR BRISENO REGARDING UNCONTROLLED A FIB. HE STATED TO GIVE 0.5 OF DIGOXIN INSTEAD OF 0.125 DIGOXIN AND 120 MG BID OF SOTALOL CALLED PHARMACY REGARDING NEW MEDS. WILL GIVE SOON THEY ARRIVE. NURSE ANKIT GIVING XANAX TO PT FOR HER ANXIETY. WILL CPOC
--- NOTE | 2018-06-15 21:48 | NUR ---
SOTALOL AND DIGOXIN GIVEN ORDERED. EDUCATION GIVEN ON MEDICATION. PT VERBALIZED UNDERSTANDING. DENIES ANY QUESTIONS OR CONCERNS. ALSO GAVE MEDICATION INFO AND EDUCATION TO BENNY DAUGHTER. WILL CPOC
--- NOTE | 2018-06-15 21:50 | NUR ---
REMOVED RIGHT WRIST 20G AND RIGHT WRIST 22G REMOVED WITH CATH INTACT.
--- NOTE | 2018-06-15 23:10 | NUR ---
TELEMETRY CALLED, PT CONVERTED TO SR 79
--- NOTE | 2018-06-15 23:15 | NUR ---
PATIENT REFLESHER LIGHT. ASSISTED PATIENT TO BATHROOM USING ONE PERSON ASSIST. PATIENT VOIDED CLEAR URINE AND SMALL BM WITH NO DIFFICULTY. ASSISTED PATIENT WITH SUMMER CARE. PATIENT BACK TO BED AND SCD'S APPLIED AND WORKING PROPERLY. PATIENT REPOSITIONED FOR COMFORT. BED IN LOWEST POSITION. CALL LIGHT IN REACH.
--- NOTE | 2018-06-16 00:03 | NUR ---
TELEMETRY CALLED SAID PT IS ASYSTOLE, ASSESSED PT, NO PULSE PT GUPPY BREATHING. SAMUEL FROM [facility] IN ROOM CALLED CODE STARTED CPR SEE CODE SHEET.
--- NOTE | 2018-06-16 00:31 | NUR ---
CALLED CORNER. CORNER IS TO CALL BACK
--- NOTE | 2018-06-16 01:20 | NUR ---
CLEANED PT AND REMOVED LEFT WRIST IV.
--- NOTE | 2018-06-16 02:15 | NUR ---
SPOKE TO HOME , FAMILY ARRIVED
--- NOTE | 2018-06-18 10:27 | MORECARE ---
CASE MANAGEMENT DISCHARGE SUMMARY PATIENT: MELISSA NAIDU UNIT: [id number] ADM DATE: 06/13/18 AGE: 78 : 38 SEX: F ROOM/BED: D.1206 AUTHOR: KEVIN HARRELL PHYSICIAN: REFERRING PHYSICIAN: PERRY MADDEN MD DATE OF SERVICE: 06/18/18 Discharge Plan Patient Name: MELISSA NAIDU Facility: [facility]:[place] : 1940 Planned Disposition: Anticipated Discharge Date: Discharge Date: 06/16/2018 Expected LOS: Initial Reviewer: [email or web address] Initial Review Date: 06/13/2018 Generated: 06/18/18 11:27 am DCP- Discharge Planning Updated by [email or web address]: Ashley Varghese on 06/13/18 9:[address] Patient Name: MELISSA NAIDU Admission Status: ER Accout number: [id number] Admission Date: 06-12-2018 : 1940 Admission Diagnosis: Attending: PERRY MADDEN Current LOS: 1 Anticipated DC Date: Planned Disposition: Primary Insurance: MEDICARE A & B Discharge Planning Comments: CM MET WITH PATIENT ABOUT DISCHARGE PLANNING/NEEDS. PLANS TO DC TO HOME WITH HER DAUGHTER. HAS ALL DME SHE NEEDS THERE. CM TALKED WITH HER ABOUT HH AND REHAB. PATIENT STATES SHE DOESN'T WANT REHAB, SHE WANTS TO GO HOME, NOT SURE ABOUT HH, SHE WANTS TO TALK TO HER DAUGHTER FIRST. CM WILL FOLLOW AND ASSIST NEEDED WITH DC PLANNING/NEEDS. [employer] Specialist: Ashley Varghese DCPIA - Discharge Planning Initial Assessment Updated by [email or web address]: Ashley Varghese on 06/13/18 11:17 am * Is the patient Alert and Oriented? Yes * PCP CINTHIA * Pharmacy [facility] * Preadmission Environment Home with Family * ADLs Independent * Equipment Cane Nebulizer Oxygen Walker Wheelchair * Other Equipment PORTABLE 02 * List name and contact numbers for known caregivers / representatives who currently or will assist patient after discharge: SMITA ZAPATA , * Community resources currently utilized None * Additional services required to return to the preadmission environment? No * Can the patient safely return to the preadmission environment? Yes * Has this patient been hospitalized within the prior 30 days at any hospital? No Last DP export: 06/13/18 9:21 am Patient Name: MELISSA NAIDU Page [id number] at 1027 All edits/amendments must be made on the electronic document DICTATION DATE: 06/18/18 1026 ANGLE BENDER: HILDA 06/18/18 1026 RPT#: [id number] DC DATE:06/16/18 STATUS: DIS IN [facility] [address] [place] [address] END OF REPORT
--- NOTE | 2018-06-18 10:55 | EC ---
PATIENT:MELISSA NAIDU DATE OF SERVICE: 06/13/18 SEX: F MEDICAL RECORD: [id number] DATE OF : [birth year] LOCATION:D.M3 D.120 AGE OF PATIENT: 78 ADMISSION DATE: 06/13/18 REFERRING PHYSICIAN: INTERPRETING PHYSICIAN: YAQUELIN COLON MD ECHOCARDIOGRAM REPORT ECHO CHARGES 4 ECHO COMPLETE Date: 06/14/18 CLINICAL DIAGNOSIS: CAD/FATIGUE ECHOCARDIOGRAPHIC MEASUREMENTS (adult normal given) AC root (d.<3.7cm) 3.4 cm LV Septum d (<1.2 cm> 1.6 cm Valve Excursion 0.8 cm LV Septum (systole) 1.6 cm Left Atria (s.<4.0cm> 2.3 cm LVPW d(<1.2cm) 1.5 cm RV (d.<2.3cm) 1.5 cm LVPW (sytole) 2.0 cm LV diastole(<5.6CM) 3.9 cm MV E-F(>70mm/sec) cm LV systole 2.2 cm LVOT Diameter 1.9 cm MV exc.(>10mm) cm Est.ejection fraction (50-75%) % DOPPLER: LVIT cm/sec A 112 cm/sec E 82.0 cm/sec LA cm/sec RVSP 42.1 mmHg LVOT 128 cm/sec AOP1/2T m/s Asc. Ao 162 cm/sec RVOT 59.0 cm/sec RA cm/sec PA 87.0 cm/sec AV Gradient Peak 11.0 mmHg AV Mean 4.9 mmHg AV Area 2.2 cm MV Gradient Peak 7.4 mmHg MV Mean 2.5 mmHg MV Area cm COMMENTS: Gas Plumbing Inspector: Luca MAYS Still Pump Operator: 1 Dr. Colon TAPE# PACS Pericardial Effusion N DATE OF SERVICE: 06/14/2018 PROCEDURE: Echocardiogram. FINDINGS: 1. Left ventricular chamber size is within normal limits. Left ventricular systolic function is normal. Overall ejection fraction estimated at 55%. 2. Left atrium, right atrium and right ventricular chamber sizes are within normal limits. 3. Valvular structures have normal structure and motion. ECHOCARDIOGRAM REPORT [id number] MELISSA NAIDU 4. Doppler interrogation reveals mild aortic insufficiency, mild mitral regurgitation, mild tricuspid regurgitation, no other valvular insufficiency or stenosis. Pulmonary systolic pressure is estimated at 42 mmHg. 5. No evidence of pericardial effusion or left ventricular thrombus. TRANSINT:[id number] Voice Confirmation ID: [id number] DOCUMENT ID: [id number] YAQUELIN COLON MD at 1055 CC: [id number] DICTATION DATE: 06/14/18 1632 FORM LAYER: 06/14/18 2337 DIS IN 06/16/18 [place] [id number] [place] [id number]
== END 2018-06-16 04:18 | DRG 189 ==
LOC: D.ER 18:43 → OBSVTIME 22:22 → D.EDHOLD 22:22 → D.M3 23:09
PROVIDERS: Family Medicine; ADMIT Emergency Medicine; ATTEND Emergency Medicine
PROC: 5A12012 Performance of Cardiac Output, Single, Manual (ICD-10-PCS; principal; 2018-06-16)
PROC: 0BH17EZ Insertion of Endotracheal Airway into Trachea, Via Natural or Artificial Opening (ICD-10-PCS; 2018-06-16)
DX: J96.21 Acute and chronic respiratory failure with hypoxia (principal); J44.1 Chronic obstructive pulmonary disease with (acute) exacerbation; T79.7XXA Traumatic subcutaneous emphysema, initial encounter; I25.10 Atherosclerotic heart disease of native coronary artery without angina pectoris; I10 Essential (primary) hypertension; M19.90 Unspecified osteoarthritis, unspecified site; M81.0 Age-related osteoporosis without current pathological fracture; D64.9 Anemia, unspecified; R19.7 Diarrhea, unspecified; R00.0 Tachycardia, unspecified; N28.9 Disorder of kidney and ureter, unspecified; X58.XXXA Exposure to other specified factors, initial encounter; J06.9 Acute upper respiratory infection, unspecified